=== PATIENT | female | born 1960 | race Caucasian/White ===

== ENCOUNTER 2016-10-27 10:29 | Emergency (ER) | payer MEDICARE, MEDICAID ==
[2016-10-27 11:06] VITALS: BP 109/65
[2016-10-27] MEDS ORDERED: Sodium Chloride 0.9% 1,000 ML IV ONE (11:38)
--- NOTE | 2016-10-27 11:45 | EDM.PDOC ---
ED HPI GENERAL MEDICAL PROBLEM - General Chief Complaint: Headache Stated Complaint: LOW BLOOD PRESSURE Time Seen by Provider: 10/27/16 11:30 Source of Information: Reports: Patient History Limitations: Reports: No Limitations - History of Present Illness Onset: Other (5 day history of mild pressure headache on left side of forehead. has tried imitrex 5 days ago and initially went away. then returned. has felt dizzy and light headed. just started on prazsosin 3 days ago. had topamax d/c at that time.) Location: Reports: Head Quality: Reports: Pressure Severity: Moderate Improves with: Reports: Other (imitrex 5 days ago initially made headache go away.) Worsens with: Reports: Movement Context: Reports: Other (prior history of migraines and gets migraines 3-4 times a month, same distribution on head (left side) ) Associated Symptoms: Reports: Other (dizzy and light headed) Headache Pain Score (Numeric/FACES): 5 - Related Data Allergies Allergy/AdvReac Type Severity Reaction Status Date / Time No Known Allergies Allergy Verified 07/05/13 15:25 Home Meds: Home Meds ALPRAZolam [Xanax] 2 mg PO DAILY 07/05/13 [History] SUMAtriptan Succinate [Imitrex] 100 mg PO ASDIRECTED PRN 07/05/13 [History] Prazosin HCl [Prazosin] 1 mg PO DAILY 10/27/16 [History] Venlafaxine HCl [Venlafaxine ER] 150 mg PO DAILY 10/27/16 [History] Venlafaxine [Effexor XR 24 Hr] 75 mg PO DAILY 10/27/16 [History] rOPINIRole [Requip] 0.5 mg PO TID 10/27/16 [History] Past Medical History Gastrointestinal History: Reports: 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 Social & Family History - Family History Family Medical History: Noncontributory - Tobacco Use Smoking Status *Q: Never Smoker Second Hand Smoke Exposure: No - Caffeine Use Caffeine Use: Reports: None - Alcohol Use Days Per Week of Alcohol Use: 0 - Recreational Drug Use Recreational Drug Use: Yes Recreational Drug Type: Reports: Marijuana/Hashish Recreational Drug Use Frequency: Weekly ED ROS GENERAL - Review of Systems Review Of Systems: See Below HEENT: Reports: No Symptoms Respiratory: Reports: No Symptoms Cardiovascular: Reports: No Symptoms Endocrine: Reports: No Symptoms GI/Abdominal: Reports: No Symptoms : Reports: No Symptoms Musculoskeletal: Reports: No Symptoms Skin: Reports: Other (has area on lower abd where sustained injury months ago, healing but occas serosang fluid. no change in fluid consistancy or amt, no increased redness/swelling or pain) Neurological: Reports: Other (dizzy last 3 days. headache for 5 days.) Psychiatric: Reports: No Symptoms ED EXAM, DIZZINESS - Physical Exam Exam: See Below Exam Limited By: No Limitations General Appearance: Alert Ears: Normal External Exam, Normal Canal, Hearing Grossly Normal, Normal TMs Nose: Normal Inspection, Normal Mucosa, No Blood Throat/Mouth: Normal Inspection, Normal Lips, Normal Teeth, Normal Gums, Normal Oropharynx, Normal Voice, No Airway Compromise Head Exam: Atraumatic, Normocephalic Neck: Normal Inspection, Supple, Non-Tender, Full Range of Motion Respiratory/Chest: No Respiratory Distress, Lungs Clear, Normal Breath Sounds Cardiovascular: Normal Peripheral Pulses, Regular Rate, Rhythm GI/Abdominal: Normal Bowel Sounds, Soft, Non-Tender Neurological: Alert, CN II-XII Intact, Oriented x 3 Back Exam: Normal Inspection, Full Range of Motion Extremities: Normal Inspection, Normal Range of Motion, Non-Tender, No Pedal Edema, Normal Capillary Refill Psychiatric: Other (poor eye contact) Skin Exam: Warm, Dry, Intact, Other (right mid abd area prior injury healing well with pink granulating scar. scant scab with no erythema/rubra/drainage. nontender) EKG INTERPRETATION EKG Date: 10/27/16 Rhythm: NSR (nsr rate 62) Course - Vital Signs Last Recorded V/S: Last Vital Signs Temp 36.1 C 10/27/16 11:00 Pulse 71 10/27/16 11:00 Resp 14 10/27/16 11:00 BP 109/65 10/27/16 11:00 Pulse Ox 98 10/27/16 11:00 - Orders/Labs/Meds Orders: Active Orders 24 hr Category Date Time Status EKG 12 Lead [EKG Documentation Completion] [RC] URGENT Care 10/27/16 12:00 Active Labs: Laboratory Tests 10/27/16 10/27/16 10/27/16 Range/Units 11:44 11:50 11:50 WBC 4.1 L (5.0-10.0) 10^3/uL RBC 3.87 L (4.2-5.4) 10^6/uL Hgb 11.1 L (12.0-16.0) g/dL Hct 34.0 L (37.0-47.0) % MCV 87.9 (80-100) fL MCH 28.7 (27.0-34.0) pg MCHC 32.6 L (33.0-35.0) g/dL Plt Count 260 (150-450) 10^3/uL Neut % (Auto) 46.6 (42.2-75.2) % Lymph % (Auto) 33.0 (20.5-50.1) % [place] % (Auto) 13.3 H (2-8) % Eos % (Auto) 6.6 H (1.0-3.0) % Baso % (Auto) 0.5 (0.0-1.0) % Sodium 137 (135-145) mmol/L Potassium 4.1 (3.6-5.0) mmol/L Chloride 103 (101-111) mmol/L Carbon Dioxide 26.0 (21.0-31.0) mmol/L Anion Gap 12.1 BUN 13 (7-18) mg/dL Creatinine 0.8 (0.6-1.3) mg/dL Est Cr Clr Drug Dosing 58.55 mL/min Estimated GFR (MDRD) > 60 BUN/Creatinine Ratio 16.25 Glucose 90 (74-105) mg/dL Calcium 9.2 (8.4-10.2) mg/dl Total Bilirubin 0.4 (0.2-1.0) mg/dL AST 52 H (10-42) IU/L ALT 40 (10-60) IU/L Alkaline Phosphatase 59 (42-121) IU/L Troponin I < 0.02 (0.00-0.02) ng/ml B-Natriuretic Peptide 12 (0-100) pg/ml Total Protein 7.3 (6.7-8.2) g/dl Albumin 4.0 (3.2-5.5) g/dl Globulin 3.3 Albumin/Globulin Ratio 1.21 Urine Color Light yellow (YELLOW) Urine Appearance Clear (CLEAR) Urine pH 6.5 (5.0-9.0) Ur Specific [place] 1.010 (1.005-1.030) Urine Protein Negative (NEGATIVE) Urine Glucose (UA) Negative (NEGATIVE) Urine Ketones Negative (NEGATIVE) Urine Occult Blood Negative (NEGATIVE) Urine Nitrite Negative (NEGATIVE) Urine Bilirubin Negative (NEGATIVE) Urine Urobilinogen 0.2 (0.2-1.0) mg/dL Ur Leukocyte Esterase Negative (NEGATIVE) Urine RBC Not seen /HPF Urine WBC Not seen (0-5/HPF) /HPF Ur Epithelial Cells Rare /HPF Meds: Medications Discontinued Medications Generic Name Dose Route Start Last Admin Trade Name Freq PRN Reason Stop Dose Admin Sodium Chloride 1,000 mls @ 999 mls/hr 10/27/16 11:38 10/27/16 12:11 Normal Saline IV 10/27/16 12:38 999 mls/hr .BOLUS ONE Administration Ketorolac Tromethamine 15 mg 10/27/16 12:48 10/27/16 12:58 Toradol IVPUSH 10/27/16 12:49 15 mg ONETIME ONE Administration Departure - Departure Time of Disposition: 13:09 Disposition: Home, Self-Care 01 Condition: good Clinical Impression: Medication adverse effect, Dizziness - Discharge Information Forms: ED Department Discharge Additional Instructions: As we discussed, most likely your symptoms are related to the Prazosin you were started on for nightmares. The options are to continue the medication to see if you can tolerated it over time. Or, if you feel the side effects are too much , stop the medication. You report your provider took you off Tomapax. As they seemed to have a very serious indication to do this, will not restart this in the ER. Advise you contact your provider and let them know you cannot tolerate the Prazosin, and request alternative choices. You will be dizzy and light headed as the Prazosin leaves your system. Use care with laying for a long period of time or sitting for a long period of time. Get up slowly and use caution with activities. No driving or working around items that could cause injury. Rest as much as possible, drink plenty of fluids. If you feel lightheaded or feel you may pass out, sit in a chair or lay in a bed quickly. If you need to, sit or lay on the floor until your symptoms improve. Contact your provider if your headache persists. - My Orders Last 24 Hours: My Active Orders 10/27/16 12:00 EKG 12 Lead [EKG Documentation Completion] [RC] URGENT - Assessment/Plan Last 24 Hours: My Active Orders 10/27/16 12:00 EKG 12 Lead [EKG Documentation Completion] [RC] URGENT
[2016-10-27 12:15] LABS: CHLORIDE,CL 103 mmol/L (101-111); SODIUM,NA 137 mmol/L (135-145)
--- NOTE | 2016-10-27 12:30 | CT ---
Clinical history: 56-year-old female with headache and dizziness (5 days). No known trauma. Scan technique: Volume acquisition of data emergency unenhanced CT scan of the head and brain obtain ed with patient lying supine on the Siemens multi slice CT scanner [place], [place]. All data archived in the PACS system for storage, reformatting and study (old/brain windows). Interpretation: Negative exam. Uniformly thick bony calvarium and no sign of paranasal or mastoid sinus inflammation. No skull fracture, underlying brain contusion or epidural/subdural hematoma. No supratentorial or posterior fossa mass lesion. No hydrocephalus. No ischemic infarcts or signs of acute intracerebral/intraventricular/subarachnoid bleed. Cerebellum and brainstem unremarkable. Physiologic midline pineal and symmetric choroid plexus calci fications.
[2016-10-27] MEDS ORDERED: Ketorolac 30 MG/ML SDV IVPUSH ONE (12:48)
--- NOTE | 2016-10-29 14:19 | EKG ---
10/27/2016 - SERENA JIMÉNEZ - TIME: 11:53. EKG per my reading, shows sinus rhythm. [facility] /[id number]
== END 2016-10-27 13:35 | disposition home or self-care (01) ==
LOC: DL.ED 10:29
DX: R42 Dizziness and giddiness (principal); T44.6X5A Adverse effect of alpha-adrenoreceptor antagonists, initial encounter; F32.9 Major depressive disorder, single episode, unspecified; G43.909 Migraine, unspecified, not intractable, without status migrainosus; Z79.899 Other long term (current) drug therapy; Z98.890 Other specified postprocedural states
CPT/HCPCS: 36415; 70450; 80053; 81001; 83880; 84484; 85025; 93005; 93010; 96361; 96374; 99284; 99285; J1885; J7030

== ENCOUNTER 2017-01-24 16:42 | Emergency (ER) | payer MEDICARE, MEDICAID ==
[2017-01-24 16:58] VITALS: BP 120/76
[2017-01-24] MEDS ORDERED: Rabies Immune Globulin PF 150 Units/ML 10 ML SDV IM ONE (17:19)
[2017-01-24] MEDS ORDERED: Rabies Vaccine, Human Diploid Cell PF 2.5 Unit SDV IM ONE (17:22)
[2017-01-24] MEDS ORDERED: Acetaminophen/HYDROcodone 325-10 MG Tab PO ONE (17:23)
--- NOTE | 2017-01-24 17:42 | EDM.PDOC ---
ED HPI GENERAL MEDICAL PROBLEM - General Chief Complaint: Bite:Animal, Insect Stated Complaint: [id number] BIT BY CAT ON SUNDAY Time Seen by Provider: 01/24/17 17:00 Source of Information: Reports: Patient History Limitations: Reports: No Limitations - History of Present Illness INITIAL COMMENTS - FREE TEXT/NARRATIVE: This 56 yo female patient reports to the ED with a cat bite. The patient reports she was bitten by her cat on Sunday (01/22/17). The patient has been experiencing increased pain in her left arm since that time. The patient reports the cat is not vaccinated but is healthy. The cat is an indoor and outdoor cat. Onset Date: 01/22/17 Duration: Constant, Getting Worse Location: Reports: Upper Extremity, Left Quality: Reports: Ache, Dull Severity: Moderate Improves with: Reports: None Worsens with: Reports: None Associated Symptoms: Reports: No Other Symptoms Bilateral Arm Pain Score (Numeric/FACES): 8 - Related Data Allergies Allergy/AdvReac Type Severity Reaction Status Date / Time latex Allergy Other Verified 01/24/17 16:46 Home Meds: Home Meds SUMAtriptan Succinate [Imitrex] 100 mg PO ASDIRECTED PRN 07/05/13 [History] Prazosin HCl [Prazosin] 1 mg PO DAILY 10/27/16 [History] Venlafaxine HCl [Venlafaxine ER] 150 mg PO DAILY 10/27/16 [History] Venlafaxine [Effexor XR 24 Hr] 75 mg PO DAILY 10/27/16 [History] rOPINIRole [Requip] 0.5 mg PO TID 10/27/16 [History] Past Medical History 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 Social & Family History - Family History Family Medical History: Noncontributory - Tobacco Use Smoking Status *Q: Never Smoker Second Hand Smoke Exposure: No - Caffeine Use Caffeine Use: Reports: Coffee, Soda - Alcohol Use Days Per Week of Alcohol Use: 0 - Recreational Drug Use Recreational Drug Use: Yes Drug Use in Last 12 Months: Yes Recreational Drug Type: Reports: Marijuana/Hashish Recreational Drug Use Frequency: Weekly ED ROS GENERAL - Review of Systems Review Of Systems: ROS reveals no pertinent complaints other than HPI. ED EXAM, ANIMAL BITE - Physical Exam Exam: Not Obtained Exam Limited By: No Limitations General Appearance: Alert, WD/WN, Moderate Distress Eye Exam: Bilateral Eye: EOMI, Normal Inspection, PERRL Ears: Normal External Exam, Normal Canal, Hearing Grossly Normal, Normal TMs Nose: Normal Inspection, Normal Mucosa, No Blood Throat/Mouth: Normal Inspection, Normal Lips, Normal Teeth, Normal Gums, Normal Oropharynx, Normal Voice, No Airway Compromise Head: Atraumatic, Normocephalic Neck: Normal Inspection, Supple, Non-Tender, Full Range of Motion Respiratory/Chest: No Respiratory Distress, Lungs Clear, Normal Breath Sounds, No Accessory Muscle Use, Chest Non-Tender Cardiovascular: Normal Peripheral Pulses, Regular Rate, Rhythm, No Edema, No Gallop, No JVD, No Murmur, No Rub GI/Abdominal: Normal Bowel Sounds, Soft, Non-Tender, No Organomegaly, No Distention, No Abnormal Bruit, No Mass (Female) Exam: Deferred Rectal (Female) Exam: Deferred Back Exam: Normal Inspection, Full Range of Motion, NT Extremities: Arm Pain (left forearm ) Neurological: Alert, Oriented, CN II-XII Intact, Normal Cognition, Normal Gait, Normal Reflexes, No Motor/Sensory Deficits Psychiatric: Normal Affect, Normal Mood Skin Exam: Other (The patient has multiple puncture wounds and scratch marion on her left and right forearm. The left forearm has erythema extending to the mid forearm with no evidence of drainage or abscess) Lymphatic: No Adenopathy Course - Vital Signs Last Recorded V/S: Last Vital Signs Temp 36.1 C 01/24/17 16:56 Pulse 95 01/24/17 16:56 Resp 20 01/24/17 16:56 BP 120/76 01/24/17 16:56 Pulse Ox 96 01/24/17 16:56 - Orders/Labs/Meds Orders: Active Orders 24 hr Category Date Time Status Vaccines to be Administered [RC] PER UNIT ROUTINE Care 01/24/17 17:23 Ordered Meds: Medications Discontinued Medications Generic Name Dose Route Start Last Admin Trade Name Freq PRN Reason Stop Dose Admin Hydrocodone Bitart/Acetaminophen 1 tab 01/24/17 17:23 [place] 325-10 Mg PO 01/24/17 17:24 ONETIME ONE Rabies Immune Globulin 1,100 unit 01/24/17 17:19 Hyperrab S/D IM 01/24/17 17:20 ONETIME ONE Rabies Vaccine Human Diploid Cell 2.5 unit 01/24/17 17:22 Imovax Rabies IM 01/24/17 17:23 .ONCE ONE Departure - Departure Time of Disposition: 17:52 Disposition: Home, Self-Care 01 Condition: Fair Clinical Impression: Cat bite involving extremity Cellulitis Qualifiers: Site of cellulitis: extremity Site of cellulitis of extremity: upper extremity Laterality: left Qualified Code(s): L03.114 - Cellulitis of left upper limb - Discharge Information Instructions: Animal Bite, [id number], Cellulitis, Adult, [id number] Forms: ED Department Discharge Care Plan Goals: The patient was advised of the examination results during the visit. The patient was advised of the recommendations for Immunoglobin and vaccination schedule. The patient was given an oral dose of [place] (10/325) for pain and the first round of the vaccination. The patient is scheduled to have vaccinations on day 0 (today), day 3, day 7, day 14 and day 28. The patient was discharged with a script for Augmentin (500/125) to take 1 by mouth 3 times per day for 7 days. If the patient has any additional symptoms or further concerns, the patient should follow-up with her primary care facility or return to the emergency department. - My Orders Last 24 Hours: My Active Orders 01/24/17 17:23 Vaccines to be Administered [RC] PER UNIT ROUTINE - Assessment/Plan Last 24 Hours: My Active Orders 01/24/17 17:23 Vaccines to be Administered [RC] PER UNIT ROUTINE
== END 2017-01-24 17:58 | disposition home or self-care (01) ==
LOC: DL.ED 16:42
DX: S51.852A Open bite of left forearm, initial encounter (principal); S51.851A Open bite of right forearm, initial encounter; L03.114 Cellulitis of left upper limb; G43.909 Migraine, unspecified, not intractable, without status migrainosus; F41.9 Anxiety disorder, unspecified; F32.9 Major depressive disorder, single episode, unspecified; Z91.040 Latex allergy status; Z79.899 Other long term (current) drug therapy; Z96.649 Presence of unspecified artificial hip joint; W55.01XA Bitten by cat, initial encounter
CPT/HCPCS: 90471; 90675; 99283; A9270

== ENCOUNTER 2019-04-12 11:03 | Observation (INO) | payer MEDICARE, MEDICAID ==
[2019-04-12] MEDS ORDERED: fentaNYL 100 MCG/2 ML SDV IVPUSH ONE (11:04)
[2019-04-12] MEDS ORDERED: Ondansetron 4 MG/2 ML SDV IV ONE (11:05)
[2019-04-12] MEDS ORDERED: Midazolam 1 MG/ML 2 ML SDV IVPUSH ONE (11:10)
[2019-04-12] MEDS ORDERED: Sodium Chloride 0.9% 1,000 ML IV ONE ×2 (11:32→12:18)
[2019-04-12] MEDS ORDERED: Piperacillin/Tazobactam 3.375 GM in Sodium Chloride 0.9% 100 ML IV ONE (12:01)
[2019-04-12] MEDS ORDERED: diphenhydrAMINE 50 MG/ML SDV IVPUSH ONE (12:01)
[2019-04-12] MEDS ORDERED: Sodium Chloride 0.9% 10 ML Syringe FLUSH PRN (12:01)
[2019-04-12 12:11] LABS: ANION GAP 11.2; CHLORIDE,CL 98 mmol/L (101-111); SODIUM,NA 131 mmol/L (135-145)
--- NOTE | 2019-04-12 13:21 | EDM.PDOC ---
Scribed by Carleen Connors 04/12/19 1126 for Rosaura Rivera MD ED HPI GENERAL MEDICAL PROBLEM - General Chief Complaint: Lower Extremity Injury/Pain Stated Complaint: HIP ABULANCE Time Seen by Provider: 04/12/19 11:06 Source of Information: Reports: Patient, EMS, EMS Notes Reviewed, RN, RN Notes Reviewed History Limitations: Reports: No Limitations - History of Present Illness INITIAL COMMENTS - FREE TEXT/NARRATIVE: Patient presents to the ER by [facility]. She has right hip pain. This started hurting this morning about 0400HRS at which time she laid on the floor and could not get up. She does not recall injuring the area and denies falling. Pt admits that she has fallen in the past 1 to 2 week though. She admits to daily marijuana use for pain. Last week she states her son brought her a new bag of marijuana and since using it she cannot sleep and has been agitated. Pt states she stays in a bedroom in their trailer house and rarely comes out. She states she has only gone outside of the home about 4 times a year. Pt states she does not feel safe in her home because people that she cannot see bang on the side of her house at all hours. Onset: Unknown/Unsure Duration: Constant Location: Reports: Lower Extremity, Right (Hip) Quality: Reports: Ache Severity: Severe Improves with: Reports: None Worsens with: Reports: Movement Associated Symptoms: Reports: No Other Symptoms Right Hip Pain Score (Numeric/FACES): 10 - Related Data Allergies Allergy/AdvReac Type Severity Reaction Status Date / Time latex Allergy Other Verified 04/12/19 11:06 Home Meds: Home Meds SUMAtriptan Succinate [Imitrex] 100 mg PO ASDIRECTED PRN 07/05/13 [History] Venlafaxine HCl [Venlafaxine ER] 150 mg PO DAILY 10/27/16 [History] rOPINIRole [Requip] 0.5 mg PO TID 10/27/16 [History] Diclofenac Sodium [Voltaren] 50 mg PO TID 12/31/17 [History] Escitalopram [Lexapro] 20 mg PO DAILY 12/31/17 [History] Propranolol [Inderal] 20 mg PO BID 12/31/17 [History] Past Medical History HEENT History: Reports: Impaired Vision Cardiovascular History: Reports: Hypertension Gastrointestinal History: Reports: Hepatitis [employer] History: Reports: Musculoskeletal History: Reports: Osteoarthritis Neurological History: Reports: Headaches, Chronic, Migraines Psychiatric History: Reports: Addiction, Anxiety, Depression - Infectious Disease History Infectious Disease History: Reports: Chicken Pox, Hepatitis C, Measles, Mumps - Past Surgical History Female Surgical History: Reports: Section Musculoskeletal Surgical History: Reports: Hip Replacement, 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) Other Musculoskeletal Surgeries/Procedures:: hip replacement x 4. Social & Family History - Family History Family Medical History: Noncontributory - Caffeine Use Caffeine Use: Reports: Soda - Alcohol Use Alcohol Use History: No - Recreational Drug Use Recreational Drug Use: Yes Drug Use in Last 12 Months: Yes Recreational Drug Type: Reports: Marijuana/Hashish Recreational Drug Use Frequency: Daily - Living Situation & Occupation Living situation: Reports: with Family Occupation: Disabled Review of Systems - Review of Systems Review Of Systems: ROS reveals no pertinent complaints other than HPI. ED EXAM, GENERAL - Physical Exam Exam: See Below Exam Limited By: No Limitations General Appearance: Alert, Anxious, Severe Distress Eye Exam: Bilateral Eye: EOMI, Nystagmus (Lateral gaze), PERRL Ears: Normal External Exam Nose: No Blood, Other (Crusting around nostrils suspicious for MRSA) Throat/Mouth: Normal Lips, Normal Voice, No Airway Compromise Head: Atraumatic, Normocephalic Neck: Normal Inspection, Full Range of Motion Respiratory/Chest: No Respiratory Distress, Lungs Clear, Normal Breath Sounds, No Accessory Muscle Use, Chest Non-Tender Cardiovascular: Normal Peripheral Pulses, Regular Rate, Rhythm, Tachycardia GI/Abdominal: Normal Bowel Sounds, Soft, Non-Tender, No Distention. No: Guarding, Rigid, Rebound Back Exam: Normal Inspection Extremities: Normal Capillary Refill, Limited Range of Motion (Rt hip due to pain), Other (Right buttock and lateral proximal thigh with large resolving hematoma/bruising. Old surgical scars at Rt hip consistent with Hx of multiple hip surgeries.). No: Increased Warmth, Mottled, Redness Neurological: Alert, Oriented, Confused Psychiatric: Anxious (Very agitated), Tearful, Other (psychotic with apparent auditory hallucinations) Skin Exam: Warm, Dry, Intact Course - Vital Signs Last Recorded V/S: Last Vital Signs Temp 98.5 F 04/12/19 11:10 Pulse 105 H 04/12/19 11:10 Resp 26 H 04/12/19 11:10 BP 148/114 H 04/12/19 11:10 Pulse Ox 94 L 04/12/19 11:10 - Orders/Labs/Meds Orders: Active Orders 24 hr Category Date Time Status Peripheral IV Care [RC] . DIRECTED Care 04/12/19 12:01 Active Chest 1V Frontal [CR] Stat Exams 04/12/19 12:08 Taken CULTURE BLOOD [] Stat Lab 04/12/19 12:24 Received CULTURE BLOOD [] Stat Lab 04/12/19 12:27 Received CULTURE STREP A CONFIRMATION [] Stat Lab 04/12/19 12:47 Results INFLUENZA A+B AG SCREEN [] Stat Lab 04/12/19 12:47 Received STREP SCRN A RAPID W CULT CONF [] Stat Lab 04/12/19 12:47 Results Sodium Chloride 0.9% [Normal Saline] 1,000 ml Med 04/12/19 12:18 Active IV .BOLUS Sodium Chloride 0.9% [Saline Flush] Med 04/12/19 12:01 Active 10 ml FLUSH ASDIRECTED PRN Vancomycin 1 gm Med 04/12/19 12:00 Active Sodium Chloride 0.9% [Normal Saline] 250 ml IV ONETIME Blood Culture x2 Reflex Set [OM.PC] Stat Oth 04/12/19 11:57 Ordered Peripheral IV Insertion Adult [OM.PC] Stat Oth 04/12/19 12:01 Ordered Medication Orders Vancomycin HCl 1 gm/ Sodium (Chloride) 250 mls @ 167 mls/hr IV ONETIME ONE Stop: 04/12/19 13:29 Sodium Chloride (Normal Saline) 1,000 mls @ 999 mls/hr IV .BOLUS ONE Stop: 04/12/19 13:18 Last Admin: 04/12/19 12:20 Dose: 999 mls/hr Sodium Chloride (Saline Flush) 10 ml FLUSH ASDIRECTED PRN PRN Reason: Keep Vein Open Last Admin: 04/12/19 13:02 Dose: 10 ml Labs: Laboratory Tests 04/12/19 04/12/19 04/12/19 Range/Units 11:38 11:38 11:38 WBC 20.0 H (5.0-10.0) 10^3/uL RBC 3.82 L (4.2-5.4) 10^6/uL Hgb 10.9 L (12.0-16.0) g/dL Hct 33.0 L (37.0-47.0) % MCV 86.4 (80-100) fL MCH 28.5 (27.0-34.0) pg MCHC 33.0 (33.0-35.0) g/dL Plt Count 352 (150-450) 10^3/uL Neut % (Auto) 92.4 H (42.2-75.2) % Lymph % (Auto) 1.8 L (20.5-50.1) % Winn % (Auto) 5.8 (2-8) % Eos % (Auto) 0.0 L (1.0-3.0) % Baso % (Auto) 0.0 (0.0-1.0) % Sodium 131 L (135-145) mmol/L Potassium 3.2 L (3.6-5.0) mmol/L Chloride 98 L (101-111) mmol/L Carbon Dioxide 25.0 (21.0-31.0) mmol/L Anion Gap 11.2 BUN 7 (7-18) mg/dL Creatinine 0.8 (0.6-1.3) mg/dL Est Cr Clr Drug Dosing 61.86 mL/min Estimated GFR (MDRD) > 60 BUN/Creatinine Ratio 8.75 Glucose 126 H (74-105) mg/dL Lactic Acid 1.1 (0.5-2.2) mmol/L Calcium 8.2 L (8.4-10.2) mg/dl Total Bilirubin 1.1 H (0.2-1.0) mg/dL AST 45 H (10-42) IU/L ALT 43 (10-60) IU/L Alkaline Phosphatase 70 (42-121) IU/L Creatine Kinase 103 (26-174) IU/L Total Protein 7.0 (6.7-8.2) g/dl Albumin 3.5 (3.2-5.5) g/dl Globulin 3.5 Albumin/Globulin Ratio 1.00 Urine Color (YELLOW) Urine Appearance (CLEAR) Urine pH (5.0-9.0) Ur Specific [place] (1.005-1.030) Urine Protein (NEGATIVE) Urine Glucose (UA) (NEGATIVE) Urine Ketones (NEGATIVE) Urine Occult Blood (NEGATIVE) Urine Nitrite (NEGATIVE) Urine Bilirubin (NEGATIVE) Urine Urobilinogen (0.2-1.0) mg/dL Ur Leukocyte Esterase (NEGATIVE) Urine RBC /HPF Urine WBC (0-5/HPF) /HPF Ur Epithelial Cells (NOT SEEN) /HPF Urine Bacteria (0-FEW/HPF) /HPF Urine Mucus (NOT SEEN) /LPF Urine Opiates Screen (NEGATIVE) Ur Oxycodone Screen (NEGATIVE) Urine Methadone Screen (NEGATIVE) Ur Barbiturates Screen (NEGATIVE) U Tricyclic Antidepress (NEGATIVE) Ur Phencyclidine Scrn (NEGATIVE) Ur Amphetamine Screen (NEGATIVE) U Methamphetamines Scrn (NEGATIVE) Urine MDMA Screen (NEGATIVE) U Benzodiazepines Scrn (NEGATIVE) Urine Cocaine Screen (NEGATIVE) U Marijuana (THC) Screen (NEGATIVE) Ethyl Alcohol < 5 mg/dL 04/12/19 04/12/19 Range/Units 12:07 12:07 WBC (5.0-10.0) 10^3/uL RBC (4.2-5.4) 10^6/uL Hgb (12.0-16.0) g/dL Hct (37.0-47.0) % MCV (80-100) fL MCH (27.0-34.0) pg MCHC (33.0-35.0) g/dL Plt Count (150-450) 10^3/uL Neut % (Auto) (42.2-75.2) % Lymph % (Auto) (20.5-50.1) % Winn % (Auto) (2-8) % Eos % (Auto) (1.0-3.0) % Baso % (Auto) (0.0-1.0) % Sodium (135-145) mmol/L Potassium (3.6-5.0) mmol/L Chloride (101-111) mmol/L Carbon Dioxide (21.0-31.0) mmol/L Anion Gap BUN (7-18) mg/dL Creatinine (0.6-1.3) mg/dL Est Cr Clr Drug Dosing mL/min Estimated GFR (MDRD) BUN/Creatinine Ratio Glucose (74-105) mg/dL Lactic Acid (0.5-2.2) mmol/L Calcium (8.4-10.2) mg/dl Total Bilirubin (0.2-1.0) mg/dL AST (10-42) IU/L ALT (10-60) IU/L Alkaline Phosphatase (42-121) IU/L Creatine Kinase (26-174) IU/L Total Protein (6.7-8.2) g/dl Albumin (3.2-5.5) g/dl Globulin Albumin/Globulin Ratio Urine Color Yellow (YELLOW) Urine Appearance Clear (CLEAR) Urine pH 7.5 (5.0-9.0) Ur Specific [place] 1.015 (1.005-1.030) Urine Protein Negative (NEGATIVE) Urine Glucose (UA) Negative (NEGATIVE) Urine Ketones Negative (NEGATIVE) Urine Occult Blood Trace-intact H (NEGATIVE) Urine Nitrite Negative (NEGATIVE) Urine Bilirubin Negative (NEGATIVE) Urine Urobilinogen 1.0 (0.2-1.0) mg/dL Ur Leukocyte Esterase Negative (NEGATIVE) Urine RBC 5-10 H /HPF Urine WBC 0-5 (0-5/HPF) /HPF Ur Epithelial Cells Few (NOT SEEN) /HPF Urine Bacteria Rare (0-FEW/HPF) /HPF Urine Mucus Few H (NOT SEEN) /LPF Urine Opiates Screen Negative (NEGATIVE) Ur Oxycodone Screen Negative (NEGATIVE) Urine Methadone Screen Negative (NEGATIVE) Ur Barbiturates Screen Negative (NEGATIVE) U Tricyclic Antidepress Negative (NEGATIVE) Ur Phencyclidine Scrn Negative (NEGATIVE) Ur Amphetamine Screen Negative (NEGATIVE) U Methamphetamines Scrn Positive H (NEGATIVE) Urine MDMA Screen Negative (NEGATIVE) U Benzodiazepines Scrn Positive H (NEGATIVE) Urine Cocaine Screen Negative (NEGATIVE) U Marijuana (THC) Screen Positive H (NEGATIVE) Ethyl Alcohol mg/dL Rapid strep: Negative. Influenza A: Negative. Influenza B: Negative. Meds: Medications Generic Name Dose Route Start Last Admin Trade Name Freq PRN Reason Stop Dose Admin Vancomycin HCl 1 gm/ Sodium 250 mls @ 167 mls/hr 04/12/19 12:00 Chloride IV 04/12/19 13:29 ONETIME ONE Sodium Chloride 1,000 mls @ 999 mls/hr 04/12/19 12:18 04/12/19 12:20 Normal Saline IV 04/12/19 13:18 999 mls/hr .BOLUS ONE Administration Sodium Chloride 10 ml 04/12/19 12:01 04/12/19 13:02 Saline Flush FLUSH 10 ml ASDIRECTED PRN Administration Keep Vein Open Discontinued Medications Generic Name Dose Route Start Last Admin Trade Name Rianna PRN Reason Stop Dose Admin Diphenhydramine HCl 25 mg 04/12/19 12:01 04/12/19 13:01 Benadryl IVPUSH 04/12/19 12:02 25 mg ONETIME ONE Administration Fentanyl 50 mcg 04/12/19 11:04 04/12/19 11:17 Sublimaze IVPUSH 04/12/19 11:05 50 mcg ONETIME ONE Administration Sodium Chloride 1,000 mls @ 999 mls/hr 04/12/19 11:32 04/12/19 13:04 Normal Saline IV 04/12/19 12:32 999 mls/hr .BOLUS ONE Administration Piperacillin Sod/Tazobactam 100 mls @ 200 mls/hr 04/12/19 12:01 04/12/19 13: 04 Sod 3.375 gm/ Sodium Chloride IV 04/12/19 12:30 200 mls/hr ONETIME ONE Administration Midazolam HCl 2 mg 04/12/19 11:10 04/12/19 13:04 Versed 1 Mg/Ml IVPUSH 04/12/19 11:11 2 mg ONETIME ONE Administration Ondansetron HCl 4 mg 04/12/19 11:05 04/12/19 11:17 Zofran IV 04/12/19 11:06 4 mg ONETIME ONE Administration - Radiology Interpretation Free Text/Narrative:: [facility] Final Radiology Report Call: [phone] assistance Online chat: [email or web address] Name: SERENA JIMÉNEZ Age: 59Years F Date: 04/12/2019 SSN: -- : 1960 Study: HIP MIN 1V W PELVIS RT Requesting Physician: ROSAURA RIVERA Images: 2 Addl Studies: Provided Clinical History: Contrast: Contrast Medium: Contrast Amount: Contrast Method: CONFIDENTIALITY STATEMENT This report is intended only for use by the referring physician, and only in accordance with law. If you received this in error, call [phone]. Page 1 of 1 PROCEDURE INFORMATION: Exam: XR Right Hip with Pelvis when Performed Exam date and time: 04/12/2019 11:06 AM Clinical history: 59 years old, female; Right hip; Prior surgery; Surgery date: 6+ months; Surgery type: Hip x 4; Patient HX: Severe RT hip pain no injury. TECHNIQUE: Imaging protocol: XR Right hip with pelvis when performed. Views: 2 or 3 views. COMPARISON: CR HIP RT 1 VIEW + PELVIS 10/13/2011 9:57 AM FINDINGS: Bones/joints: Status post right total hip arthroplasty with no evidence of migration, loosening, failure or fracture. 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 Large right acetabular component. Soft tissues: Unremarkable. IMPRESSION: 1. Status post right total hip arthroplasty with no evidence of migration, loosening, failure or fracture. 2. 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 Thank you for allowing us to participate in the care of your patient. Dictated and Authenticated by: Garry Corral MD 04/12/2019 11:54 AM Central Time ( & [place]) [facility] Final Radiology Report Call: [phone] assistance Online chat: [email or web address] Name: SERENA JIMÉNEZ Age: 59Years F Date: 04/12/2019 SSN: -- : 1960 Study: XR CHEST 1 VIEW FRONTAL Requesting Physician: ROSAURA RIVERA Images: 1 Addl Studies: Provided Clinical History: Contrast: Contrast Medium: Contrast Amount: Contrast Method: CONFIDENTIALITY STATEMENT This report is intended only for use by the referring physician, and only in accordance with law. If you received this in error, call [phone]. Page 1 of 1 PROCEDURE INFORMATION: Exam: XR Chest, 1 View Exam date and time: 04/12/2019 12:12 PM Clinical history: 59 years old, female; Other: Sepsis unknown origin TECHNIQUE: Imaging protocol: XR of the chest Views: 1 view. COMPARISON: No relevant prior studies available. FINDINGS: Lungs: Unremarkable. No consolidation. Pleural space: Unremarkable. No pleural effusion. No pneumothorax. Heart/Mediastinum: Unremarkable. No cardiomegaly. Bones/joints: Unremarkable. IMPRESSION: No acute findings. Thank you for allowing us to participate in the care of your patient. Dictated and Authenticated by: Garry Corral MD 04/12/2019 12:27 PM Central Time ([place] & [place]) Departure - Departure Time of Disposition: 13:05 (admit to Dr. Park) Disposition: Refer to Observation Condition: Fair, Undetermined Clinical Impression: Exposure to methamphetamine, Chronic right hip pain Sepsis Qualifiers: Sepsis type: sepsis due to unspecified organism Sepsis acute organ dysfunction status: without acute organ dysfunction Qualified Code(s): A41.9 - Sepsis, unspecified organism Altered mental status Qualifiers: Altered mental status type: unspecified Qualified Code(s): R41.82 - Altered mental status, unspecified Traumatic hematoma of buttock Qualifiers: Encounter type: initial encounter Qualified Code(s): S30.0XXA - Contusion of lower back and pelvis, initial encounter Traumatic hematoma of right thigh Qualifiers: Encounter type: initial encounter Qualified Code(s): S70.11XA - Contusion of right thigh, initial encounter - Discharge Information *PRESCRIPTION DRUG MONITORING PROGRAM REVIEWED*: No *COPY OF PRESCRIPTION DRUG MONITORING REPORT IN PATIENT SURENDRA: No Forms: ED Department Discharge - My Orders Last 24 Hours: My Active Orders 04/12/19 11:57 Blood Culture x2 Reflex Set [OM.PC] Stat 04/12/19 12:00 Vancomycin 1 gm Sodium Chloride 0.9% [Normal Saline] 250 ml IV ONETIME 04/12/19 12:01 Peripheral IV Care [RC] . DIRECTED Sodium Chloride 0.9% [Saline Flush] 10 ml FLUSH ASDIRECTED PRN Peripheral IV Insertion Adult [OM.PC] Stat 04/12/19 12:08 Chest 1V Frontal [CR] Stat 04/12/19 12:18 Sodium Chloride 0.9% [Normal Saline] 1,000 ml IV .BOLUS 04/12/19 12:24 CULTURE BLOOD [BC] Stat 04/12/19 12:27 CULTURE BLOOD [BC] Stat 04/12/19 12:47 CULTURE STREP A CONFIRMATION [RM] Stat INFLUENZA A+B AG SCREEN [] Stat STREP SCRN A RAPID W CULT CONF [] Stat - Assessment/Plan Last 24 Hours: My Active Orders 04/12/19 11:57 Blood Culture x2 Reflex Set [OM.PC] Stat 04/12/19 12:00 Vancomycin 1 gm Sodium Chloride 0.9% [Normal Saline] 250 ml IV ONETIME 04/12/19 12:01 Peripheral IV Care [RC] . DIRECTED Sodium Chloride 0.9% [Saline Flush] 10 ml FLUSH ASDIRECTED PRN Peripheral IV Insertion Adult [OM.PC] Stat 04/12/19 12:08 Chest 1V Frontal [CR] Stat 04/12/19 12:18 Sodium Chloride 0.9% [Normal Saline] 1,000 ml IV .BOLUS 04/12/19 12:24 CULTURE BLOOD [BC] Stat 04/12/19 12:27 CULTURE BLOOD [BC] Stat 04/12/19 12:47 CULTURE STREP A CONFIRMATION [RM] Stat INFLUENZA A+B AG SCREEN [RM] Stat STREP SCRN A RAPID W CULT CONF [RM] Stat I have read and agree with the documentation that has been completed regarding this visit. By signing this record, I attest that the documentation was completed in my physical presence and is an accurate record of the encounter.
[2019-04-12] MEDS ORDERED: Morphine 2 MG/ML Syringe IVPUSH ONE (13:56)
--- NOTE | 2019-04-12 14:17 | PCM.HP ---
H&P History of Present Illness - General Date of Service: 04/12/19 Admit Problem/Dx: Admission Diagnosis/Problem Admission Diagnosis/Problem Methamphetamine abuse Source of Information: Patient, Provider (From the ER) - History of Present Illness Initial Comments - Free Text/Narative: 59-year-old lady with a history of anxiety, migraine. She lives with son, rarely leaving her trailer home. She has had multiple surgeries on her right hip. She is using marijuana for pain control. Recently received a new bag and since then she has been unable to sleep. She has had diarrhea. She says she got out of bed around 4:00 in the morning and was unable to get up She is complaining of right sided hip pain. Worse with movements. Sharp. Radiating From the low back down to the right knee No associated redness. She was noted to have fever in the emergency room. Santana catheter was placed. Right Hip Pain Score (Numeric/FACES): 10 - Related Data Allergies/Adverse Reactions: Allergies Allergy/AdvReac Type Severity Reaction Status Date / Time latex Allergy Other Verified 04/12/19 11:06 Home Medications: Home Meds SUMAtriptan Succinate [Imitrex] 100 mg PO ASDIRECTED PRN 07/05/13 [History] rOPINIRole [Requip] 0.5 mg PO TID 10/27/16 [History] Diclofenac Sodium [Voltaren] 50 mg PO TID 12/31/17 [History] Escitalopram [Lexapro] 20 mg PO DAILY 12/31/17 [History] ALPRAZolam [Xanax] 0.5 mg PO Q6HR PRN 04/12/19 [History] Past Medical History HEENT History: Reports: Impaired Vision Cardiovascular History: Reports: Hypertension Respiratory History: Reports: None Gastrointestinal History: Reports: GERD, Hepatitis [employer] History: Reports: , 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) Other OB/BYN History: tubal Ligation Musculoskeletal History: Reports: Osteoarthritis Neurological History: Reports: Headaches, Chronic, Migraines Psychiatric History: Reports: Addiction, Anxiety, Depression Endocrine/Metabolic History: Reports: None Hematologic History: Reports: Anemia, Blood Transfusion(s) Immunologic History: Reports: None Oncologic (Cancer) History: Reports: None Dermatologic History: Reports: None - Infectious Disease History Infectious Disease History: Reports: Chicken Pox, Hepatitis C, Measles, Mumps - Past Surgical History GI Surgical History: Reports: Colonoscopy Female Surgical History: Reports: Section Musculoskeletal Surgical History: Reports: Hip Replacement, 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) Other Musculoskeletal Surgeries/Procedures:: hip replacement x 4. Social & Family History - Family History Family Medical History: Noncontributory - Tobacco Use Smoking Status *Q: Never Smoker Second Hand Smoke Exposure: No - Caffeine Use Caffeine Use: Reports: Coffee, Soda - Alcohol Use Date of Last Drink: 10/02/17 - Recreational Drug Use Recreational Drug Use: Yes Drug Use in Last 12 Months: Yes Recreational Drug Type: Reports: Marijuana/Hashish Recreational Drug Use Frequency: Daily - Living Situation & Occupation Living situation: Reports: with Family Occupation: Disabled H&P Review of Systems - Review of Systems: Review Of Systems: See Below General: Reports: Fever Pulmonary: Denies: Shortness of Breath Cardiovascular: Denies: Chest Pain Gastrointestinal: Reports: Diarrhea Genitourinary: Denies: Dysuria Psychiatric: Reports: Anxiety, Other (Difficulty sleeping) Neurological: Reports: Other (Frequent headaches with a history of migraines) Exam - Exam Exam: See Below - Vital Signs Vital Signs: Last Vital Signs Temp 36.9 C 04/12/19 11:10 Pulse 105 H 04/12/19 11:10 Resp 26 H 04/12/19 11:10 BP 148/114 H 04/12/19 11:10 Pulse Ox 94 L 04/12/19 11:10 Weight: 60.419 kg - Exam General: Alert, Oriented Neck: Supple Lungs: Clear to Auscultation, Normal Respiratory Effort Cardiovascular: Regular Rate, Regular Rhythm Extremities: No Pedal Edema, Other (Right hip with incision, no redness, no swelling, the patient can move the hip but complaining of pain when I'm moving it.) Skin: Warm, Dry Neuro Extensive - Mental Status: Alert, Oriented x3 Psychiatric: Anxious, Other (Restless, moderately agitated) - Patient Data Lab Results Last 24 hrs: Laboratory Results - last 24 hr 04/12/19 04/12/19 04/12/19 Range/Units 11:38 11:38 11:38 WBC 20.0 H (5.0-10.0) 10^3/uL RBC 3.82 L (4.2-5.4) 10^6/uL Hgb 10.9 L (12.0-16.0) g/dL Hct 33.0 L (37.0-47.0) % MCV 86.4 (80-100) fL MCH 28.5 (27.0-34.0) pg MCHC 33.0 (33.0-35.0) g/dL Plt Count 352 (150-450) 10^3/uL Neut % (Auto) 92.4 H (42.2-75.2) % Lymph % (Auto) 1.8 L (20.5-50.1) % [place] % (Auto) 5.8 (2-8) % Eos % (Auto) 0.0 L (1.0-3.0) % Baso % (Auto) 0.0 (0.0-1.0) % Sodium 131 L (135-145) mmol/L Potassium 3.2 L (3.6-5.0) mmol/L Chloride 98 L (101-111) mmol/L Carbon Dioxide 25.0 (21.0-31.0) mmol/L Anion Gap 11.2 BUN 7 (7-18) mg/dL Creatinine 0.8 (0.6-1.3) mg/dL Est Cr Clr Drug Dosing 61.86 mL/min Estimated GFR (MDRD) > 60 BUN/Creatinine Ratio 8.75 Glucose 126 H (74-105) mg/dL Lactic Acid 1.1 (0.5-2.2) mmol/L Calcium 8.2 L (8.4-10.2) mg/dl Total Bilirubin 1.1 H (0.2-1.0) mg/dL AST 45 H (10-42) IU/L ALT 43 (10-60) IU/L Alkaline Phosphatase 70 (42-121) IU/L Creatine Kinase 103 (26-174) IU/L Total Protein 7.0 (6.7-8.2) g/dl Albumin 3.5 (3.2-5.5) g/dl Globulin 3.5 Albumin/Globulin Ratio 1.00 Urine Color (YELLOW) Urine Appearance (CLEAR) Urine pH (5.0-9.0) Ur Specific [place] (1.005-1.030) Urine Protein (NEGATIVE) Urine Glucose (UA) (NEGATIVE) Urine Ketones (NEGATIVE) Urine Occult Blood (NEGATIVE) Urine Nitrite (NEGATIVE) Urine Bilirubin (NEGATIVE) Urine Urobilinogen (0.2-1.0) mg/dL Ur Leukocyte Esterase (NEGATIVE) Urine RBC /HPF Urine WBC (0-5/HPF) /HPF Ur Epithelial Cells (NOT SEEN) /HPF Urine Bacteria (0-FEW/HPF) /HPF Urine Mucus (NOT SEEN) /LPF Urine Opiates Screen (NEGATIVE) Ur Oxycodone Screen (NEGATIVE) Urine Methadone Screen (NEGATIVE) Ur Barbiturates Screen (NEGATIVE) U Tricyclic Antidepress (NEGATIVE) Ur Phencyclidine Scrn (NEGATIVE) Ur Amphetamine Screen (NEGATIVE) U Methamphetamines Scrn (NEGATIVE) Urine MDMA Screen (NEGATIVE) U Benzodiazepines Scrn (NEGATIVE) Urine Cocaine Screen (NEGATIVE) U Marijuana (THC) Screen (NEGATIVE) Ethyl Alcohol < 5 mg/dL 04/12/19 04/12/19 Range/Units 12:07 12:07 WBC (5.0-10.0) 10^3/uL RBC (4.2-5.4) 10^6/uL Hgb (12.0-16.0) g/dL Hct (37.0-47.0) % MCV (80-100) fL MCH (27.0-34.0) pg MCHC (33.0-35.0) g/dL Plt Count (150-450) 10^3/uL Neut % (Auto) (42.2-75.2) % Lymph % (Auto) (20.5-50.1) % [place] % (Auto) (2-8) % Eos % (Auto) (1.0-3.0) % Baso % (Auto) (0.0-1.0) % Sodium (135-145) mmol/L Potassium (3.6-5.0) mmol/L Chloride (101-111) mmol/L Carbon Dioxide (21.0-31.0) mmol/L Anion Gap BUN (7-18) mg/dL Creatinine (0.6-1.3) mg/dL Est Cr Clr Drug Dosing mL/min Estimated GFR (MDRD) BUN/Creatinine Ratio Glucose (74-105) mg/dL Lactic Acid (0.5-2.2) mmol/L Calcium (8.4-10.2) mg/dl Total Bilirubin (0.2-1.0) mg/dL AST (10-42) IU/L ALT (10-60) IU/L Alkaline Phosphatase (42-121) IU/L Creatine Kinase (26-174) IU/L Total Protein (6.7-8.2) g/dl Albumin (3.2-5.5) g/dl Globulin Albumin/Globulin Ratio Urine Color Yellow (YELLOW) Urine Appearance Clear (CLEAR) Urine pH 7.5 (5.0-9.0) Ur Specific [place] 1.015 (1.005-1.030) Urine Protein Negative (NEGATIVE) Urine Glucose (UA) Negative (NEGATIVE) Urine Ketones Negative (NEGATIVE) Urine Occult Blood Trace-intact H (NEGATIVE) Urine Nitrite Negative (NEGATIVE) Urine Bilirubin Negative (NEGATIVE) Urine Urobilinogen 1.0 (0.2-1.0) mg/dL Ur Leukocyte Esterase Negative (NEGATIVE) Urine RBC 5-10 H /HPF Urine WBC 0-5 (0-5/HPF) /HPF Ur Epithelial Cells Few (NOT SEEN) /HPF Urine Bacteria Rare (0-FEW/HPF) /HPF Urine Mucus Few H (NOT SEEN) /LPF Urine Opiates Screen Negative (NEGATIVE) Ur Oxycodone Screen Negative (NEGATIVE) Urine Methadone Screen Negative (NEGATIVE) Ur Barbiturates Screen Negative (NEGATIVE) U Tricyclic Antidepress Negative (NEGATIVE) Ur Phencyclidine Scrn Negative (NEGATIVE) Ur Amphetamine Screen Negative (NEGATIVE) U Methamphetamines Scrn Positive H (NEGATIVE) Urine MDMA Screen Negative (NEGATIVE) U Benzodiazepines Scrn Positive H (NEGATIVE) Urine Cocaine Screen Negative (NEGATIVE) U Marijuana (THC) Screen Positive H (NEGATIVE) Ethyl Alcohol mg/dL Result Diagrams: 04/12/19 11:38 04/12/19 11:38 Luciano Results Last 24 hrs: Microbiology 04/12/19 12:47 Influenza Type A Antigen Screen - Final Nasal, Unspecified NEGATIVE INFLUENZA A VIRUS AG REFERENCE RANGE: NEGATIVE Influenza Type B Antigen Screen - Final NEGATIVE INFLUENZA B VIRUS AG REFERENCE RANGE: NEGATIVE 04/12/19 12:47 Group A Streptococcus Rapid Screen - Final Throat NEGATIVE STREP A SCREEN REFERENCE RANGE: NEGATIVE Imaging Impressions Last 24 hrs: [facility] Final Radiology Report Call: [phone] assistance Online chat: [email or web address] Name: SERENA JIMÉNEZ Age: 59Years F Date: 04/12/2019 SSN: -- : [id number] Study: HIP MIN 1V W PELVIS RT Requesting Physician: ROSAURA OLVERA Images: 2 Addl Studies: Provided Clinical History: Contrast: Contrast Medium: Contrast Amount: Contrast Method: CONFIDENTIALITY STATEMENT This report is intended only for use by the referring physician, and only in accordance with law. If you received this in error, call [phone]. Page 1 of 1 PROCEDURE INFORMATION: Exam: XR Right Hip with Pelvis when Performed Exam date and time: 04/12/2019 11:06 AM Clinical history: 59 years old, female; Right hip; Prior surgery; Surgery date: 6+ months; Surgery type: Hip x 4; Patient HX: Severe RT hip pain no injury. TECHNIQUE: Imaging protocol: XR Right hip with pelvis when performed. Views: 2 or 3 views. COMPARISON: CR HIP RT 1 VIEW + PELVIS 10/13/2011 9:57 AM FINDINGS: Bones/joints: Status post right total hip arthroplasty with no evidence of migration, loosening, failure or fracture. 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 Large right acetabular component. Soft tissues: Unremarkable. IMPRESSION: 1. Status post right total hip arthroplasty with no evidence of migration, loosening, failure or fracture. 2. 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 Thank you for allowing us to participate in the care of your patient. Dictated and Authenticated by: Garry Corral MD 04/12/2019 11:54 AM Central Time ([place] & [place]) [facility] Final Radiology Report Call: [phone] assistance Online chat: [email or web address] Name: SERENA JIMÉNEZ Age: 59Years F Date: 04/12/2019 SSN: -- : 1960 Study: XR CHEST 1 VIEW FRONTAL Requesting Physician: ROSAURA OLVERA Images: 1 Addl Studies: Provided Clinical History: Contrast: Contrast Medium: Contrast Amount: Contrast Method: CONFIDENTIALITY STATEMENT This report is intended only for use by the referring physician, and only in accordance with law. If you received this in error, call [phone]. Page 1 of 1 PROCEDURE INFORMATION: Exam: XR Chest, 1 View Exam date and time: 04/12/2019 12:12 PM Clinical history: 59 years old, female; Other: Sepsis unknown origin TECHNIQUE: Imaging protocol: XR of the chest Views: 1 view. COMPARISON: No relevant prior studies available. FINDINGS: Lungs: Unremarkable. No consolidation. Pleural space: Unremarkable. No pleural effusion. No pneumothorax. Heart/Mediastinum: Unremarkable. No cardiomegaly. Bones/joints: Unremarkable. IMPRESSION: No acute findings. Thank you for allowing us to participate in the care of your patient. Dictated and Authenticated by: Garry Corral MD 04/12/2019 12:27 PM Central Time ([place] & [place]) - Problem List (1) Altered mental status SNOMED Code(s): 002928532 ICD Code: R41.82 - ALTERED MENTAL STATUS, UNSPECIFIED Status: Acute Current Visit: Yes Qualifiers: Altered mental status type: unspecified Qualified Code(s): R41.82 - Altered mental status, unspecified (2) Exposure to methamphetamine SNOMED Code(s): 903945861 ICD Code: Z77.29 - CONTACT WITH AND EXPOSURE TO OTHER HAZARDOUS SUBSTANCES Status: Acute Current Visit: Yes (3) Sepsis SNOMED Code(s): 98012332 ICD Code: A41.9 - SEPSIS, UNSPECIFIED ORGANISM Status: Acute Current Visit: Yes Qualifiers: Sepsis type: sepsis due to unspecified organism Sepsis acute organ dysfunction status: without acute organ dysfunction Qualified Code(s): A41.9 - Sepsis, unspecified organism Problem List Initiated/Reviewed/Updated: Yes Orders Last 24hrs: Active Orders 24 hr Category Date Time Status Admission Diagnosis [ADT] Routine ADT 04/12/19 13:16 Ordered Admission Status [Patient Status] [ADT] Routine ADT 04/12/19 13:16 Active Peripheral IV Care [RC] . DIRECTED Care 04/12/19 12:01 Active Chest 1V Frontal [CR] Stat Exams 04/12/19 12:08 Taken CULTURE BLOOD [BC] Stat Lab 04/12/19 12:24 Received CULTURE BLOOD [BC] Stat Lab 04/12/19 12:27 Received CULTURE STREP A CONFIRMATION [RM] Stat Lab 04/12/19 12:47 Results STREP SCRN A RAPID W CULT CONF [RM] Stat Lab 04/12/19 12:47 Results LORazepam [Ativan] Med 04/12/19 14:06 Ordered 1 mg IVPUSH Q4H PRN Piperacillin/Tazobactam [Zosyn] 3.375 gm Med 04/12/19 18:00 Ordered Sodium Chloride 0.9% [Normal Saline] 100 ml IV Q6H Sodium Chloride 0.9% [Saline Flush] Med 04/12/19 12:01 Active 10 ml FLUSH ASDIRECTED PRN Blood Culture x2 Reflex Set [OM.PC] Stat Ot 04/12/19 11:57 Ordered Peripheral IV Insertion Adult [OM.PC] Stat Ot 04/12/19 12:01 Ordered Medication Orders Piperacillin Sod/Tazobactam (Sod 3.375 gm/ Sodium Chloride) 100 mls @ 200 mls/ hr IV Q6H BRAYDON Lorazepam (Ativan) 1 mg IVPUSH Q4H PRN PRN Reason: Anxiety Sodium Chloride (Saline Flush) 10 ml FLUSH ASDIRECTED PRN PRN Reason: Keep Vein Open Last Admin: 04/12/19 13:02 Dose: 10 ml Assessment/Plan Comment:: 59-year-old lady presented with right hip pain. The patient has a history of prior surgeries. She is quite anxious and agitated and difficult to get a good examination and history. The physical exam of the hip other than pain appears quite benign. Healed surgical scars seen. X-ray of the hip did not identify dislocation, fracture. There is leukocytosis and has a history of infection. For now obtain blood cultures Consider MRI if continue to have concern for infection in the future. Diarrhea This might relate to the leukocytosis Check for C. difficile Possible Sepsis With leukocytosis, fever Will give IV fluids Follow Other sources of infection Ua shows negative nitrate, negative leukocyte esterase, send culture Chest x-ray showed no infection Empirically treat with Zosyn She also received a dose of vancomycin in the emergency room Repeat CBC, lactic acid in the morning Anxiety, agitation With history of PTSD, anxiety, migraines The patient tested positive for amphetamines This might be a contaminant in the Marijuana she used Use Ativan as needed for anxiety Morphine IV for pain Continue Lexapro for anxiety DVT prophylaxis with subcutaneous heparin
[2019-04-12] MEDS ORDERED: Zolpidem 5 MG Tab PO PRN (14:33)
[2019-04-12] MEDS ORDERED: Ibuprofen 400 MG Tab PO PRN (14:33)
[2019-04-12] MEDS ORDERED: Acetaminophen 325 MG Tab PO PRN (14:33)
[2019-04-12] MEDS ORDERED: Ondansetron 4 MG Tab.DIS PO PRN (14:33)
[2019-04-12] MEDS ORDERED: Ondansetron 4 MG/2 ML SDV IVPUSH PRN (14:33)
[2019-04-12] MEDS ORDERED: NS + KCl 20mEq/L 1,000 ML IV SCH (14:45)
[2019-04-12] MEDS: LORazepam 2 MG/ML Syringe IVPUSH PRN ×2 (14:51→19:53)
[2019-04-12] MEDS ORDERED: LORazepam 2 MG/ML Syringe IVPUSH ONE (15:36)
[2019-04-12] MEDS: Morphine 2 MG/ML Syringe IVPUSH PRN ×2 (15:42→19:53)
[2019-04-12] MEDS: Potassium Chloride 10 MEQ Tab.ER PO SCH ×2 (16:09→20:40)
--- NOTE | 2019-04-12 16:12 | PCM.DCSUM1 ---
Discharge Summary - Hospital Course Free Text/Narrative:: 59-year-old lady presented with right hip pain. The patient has a history of prior surgeries. She is quite anxious and agitated and difficult to get a good examination and history. The physical exam of the hip other than pain appears quite benign. Healed surgical scars seen. X-ray of the hip did not identify dislocation, fracture. There is leukocytosis and has a history of infection. For now obtain blood cultures Consider MRI if continue to have concern for infection in the future. Diarrhea This might relate to the leukocytosis Check for C. difficile Possible Sepsis With leukocytosis, fever Will give IV fluids Follow Other sources of infection Ua shows negative nitrate, negative leukocyte esterase, send culture Chest x-ray showed no infection Empirically treat with Zosyn She also received a dose of vancomycin in the emergency room Repeat CBC, lactic acid in the morning Anxiety, agitation With history of PTSD, anxiety, migraines The patient tested positive for amphetamines This might be a contaminant in the Marijuana she used Use Ativan as needed for anxiety Morphine IV for pain Continue Lexapro for anxiety DVT prophylaxis with subcutaneous heparin addendum: continued to be agitated, c/o pain will tx. to [facility] for higher level of care Diagnosis: Stroke: No - Discharge Data Discharge Date: 04/12/19 Discharge Disposition: DC/Tfer to Acute Hospital 02 Condition: Good - Referral to Home Health Primary Care Physician: PCP Unobtainable - Discharge Diagnosis/Problem(s) (1) Altered mental status SNOMED Code(s): 704479554 ICD Code: R41.82 - ALTERED MENTAL STATUS, UNSPECIFIED Status: Acute Current Visit: Yes Qualifiers: Altered mental status type: unspecified Qualified Code(s): R41.82 - Altered mental status, unspecified (2) Exposure to methamphetamine SNOMED Code(s): 147636751 ICD Code: Z77.29 - CONTACT WITH AND EXPOSURE TO OTHER HAZARDOUS SUBSTANCES Status: Acute Current Visit: Yes (3) Sepsis SNOMED Code(s): 31280881 ICD Code: A41.9 - SEPSIS, UNSPECIFIED ORGANISM Status: Acute Current Visit: Yes Qualifiers: Sepsis type: sepsis due to unspecified organism Sepsis acute organ dysfunction status: without acute organ dysfunction Qualified Code(s): A41.9 - Sepsis, unspecified organism - Patient Instructions Diet: Heart Healthy Diet - Discharge Plan *PRESCRIPTION DRUG MONITORING PROGRAM REVIEWED*: No *COPY OF PRESCRIPTION DRUG MONITORING REPORT IN PATIENT SURENDRA: No Home Medications: Home Meds SUMAtriptan Succinate [Imitrex] 100 mg PO ASDIRECTED PRN 07/05/13 [History] rOPINIRole [Requip] 0.5 mg PO TID 10/27/16 [History] Diclofenac Sodium [Voltaren] 50 mg PO TID 12/31/17 [History] Escitalopram [Lexapro] 20 mg PO DAILY 12/31/17 [History] ALPRAZolam [Xanax] 0.5 mg PO Q6HR PRN 04/12/19 [History] Acetaminophen [Tylenol] 650 mg PO Q4H PRN tablet 04/12/19 [Rx] Heparin Sodium 5,000 units SUBCUT Q8HR vial 04/12/19 [Rx] LORazepam [Ativan] 1 mg IVPUSH Q4H PRN syringe 04/12/19 [Rx] Morphine 1 mg IVPUSH Q4H PRN syringe 04/12/19 [Rx] Ondansetron [Zofran ODT] 4 mg PO Q6H PRN tab.dis 04/12/19 [Rx] Piperacillin/Tazobactam [Zosyn] 3.375 gm IV Q6H vial 04/12/19 [Rx] - Discharge Summary/Plan Comment DC Time >30 min.: No - General Info Date of Service: 04/12/19 Functional Status: Denies: Pain Controlled - Review of Systems Musculoskeletal: Reports: Other (r hip pain) Neurological: Denies: Weakness Psychiatric: Reports: Agitation - Patient Data Vitals - Most Recent: Last Vital Signs Temp 38.4 C H 04/12/19 14:34 Pulse 89 04/12/19 14:34 Resp 20 04/12/19 14:34 BP 130/66 04/12/19 14:34 Pulse Ox 99 04/12/19 14:34 Weight - Most Recent: 60.419 kg I&O - Last 24 hours: Intake & Output 04/12/19 04/12/19 04/12/19 06:59 14:59 22:59 Output Total 300 Balance -300 Lab Results - Last 24 hrs: Laboratory Results - last 24 hr 04/12/19 04/12/19 04/12/19 Range/Units 11:38 11:38 11:38 WBC 20.0 H (5.0-10.0) 10^3/uL RBC 3.82 L (4.2-5.4) 10^6/uL Hgb 10.9 L (12.0-16.0) g/dL Hct 33.0 L (37.0-47.0) % MCV 86.4 (80-100) fL MCH 28.5 (27.0-34.0) pg MCHC 33.0 (33.0-35.0) g/dL Plt Count 352 (150-450) 10^3/uL Neut % (Auto) 92.4 H (42.2-75.2) % Lymph % (Auto) 1.8 L (20.5-50.1) % [place] % (Auto) 5.8 (2-8) % Eos % (Auto) 0.0 L (1.0-3.0) % Baso % (Auto) 0.0 (0.0-1.0) % Sodium 131 L (135-145) mmol/L Potassium 3.2 L (3.6-5.0) mmol/L Chloride 98 L (101-111) mmol/L Carbon Dioxide 25.0 (21.0-31.0) mmol/L Anion Gap 11.2 BUN 7 (7-18) mg/dL Creatinine 0.8 (0.6-1.3) mg/dL Est Cr Clr Drug Dosing 61.86 mL/min Estimated GFR (MDRD) > 60 BUN/Creatinine Ratio 8.75 Glucose 126 H (74-105) mg/dL Lactic Acid 1.1 (0.5-2.2) mmol/L Calcium 8.2 L (8.4-10.2) mg/dl Total Bilirubin 1.1 H (0.2-1.0) mg/dL AST 45 H (10-42) IU/L ALT 43 (10-60) IU/L Alkaline Phosphatase 70 (42-121) IU/L Creatine Kinase 103 (26-174) IU/L Total Protein 7.0 (6.7-8.2) g/dl Albumin 3.5 (3.2-5.5) g/dl Globulin 3.5 Albumin/Globulin Ratio 1.00 Urine Color (YELLOW) Urine Appearance (CLEAR) Urine pH (5.0-9.0) Ur Specific [place] (1.005-1.030) Urine Protein (NEGATIVE) Urine Glucose (UA) (NEGATIVE) Urine Ketones (NEGATIVE) Urine Occult Blood (NEGATIVE) Urine Nitrite (NEGATIVE) Urine Bilirubin (NEGATIVE) Urine Urobilinogen (0.2-1.0) mg/dL Ur Leukocyte Esterase (NEGATIVE) Urine RBC /HPF Urine WBC (0-5/HPF) /HPF Ur Epithelial Cells (NOT SEEN) /HPF Urine Bacteria (0-FEW/HPF) /HPF Urine Mucus (NOT SEEN) /LPF Urine Opiates Screen (NEGATIVE) Ur Oxycodone Screen (NEGATIVE) Urine Methadone Screen (NEGATIVE) Ur Barbiturates Screen (NEGATIVE) U Tricyclic Antidepress (NEGATIVE) Ur Phencyclidine Scrn (NEGATIVE) Ur Amphetamine Screen (NEGATIVE) U Methamphetamines Scrn (NEGATIVE) Urine MDMA Screen (NEGATIVE) U Benzodiazepines Scrn (NEGATIVE) Urine Cocaine Screen (NEGATIVE) U Marijuana (THC) Screen (NEGATIVE) Ethyl Alcohol < 5 mg/dL 04/12/19 04/12/19 Range/Units 12:07 12:07 WBC (5.0-10.0) 10^3/uL RBC (4.2-5.4) 10^6/uL Hgb (12.0-16.0) g/dL Hct (37.0-47.0) % MCV (80-100) fL MCH (27.0-34.0) pg MCHC (33.0-35.0) g/dL Plt Count (150-450) 10^3/uL Neut % (Auto) (42.2-75.2) % Lymph % (Auto) (20.5-50.1) % Taylor % (Auto) (2-8) % Eos % (Auto) (1.0-3.0) % Baso % (Auto) (0.0-1.0) % Sodium (135-145) mmol/L Potassium (3.6-5.0) mmol/L Chloride (101-111) mmol/L Carbon Dioxide (21.0-31.0) mmol/L Anion Gap BUN (7-18) mg/dL Creatinine (0.6-1.3) mg/dL Est Cr Clr Drug Dosing mL/min Estimated GFR (MDRD) BUN/Creatinine Ratio Glucose (74-105) mg/dL Lactic Acid (0.5-2.2) mmol/L Calcium (8.4-10.2) mg/dl Total Bilirubin (0.2-1.0) mg/dL AST (10-42) IU/L ALT (10-60) IU/L Alkaline Phosphatase (42-121) IU/L Creatine Kinase (26-174) IU/L Total Protein (6.7-8.2) g/dl Albumin (3.2-5.5) g/dl Globulin Albumin/Globulin Ratio Urine Color Yellow (YELLOW) Urine Appearance Clear (CLEAR) Urine pH 7.5 (5.0-9.0) Ur Specific [place] 1.015 (1.005-1.030) Urine Protein Negative (NEGATIVE) Urine Glucose (UA) Negative (NEGATIVE) Urine Ketones Negative (NEGATIVE) Urine Occult Blood Trace-intact H (NEGATIVE) Urine Nitrite Negative (NEGATIVE) Urine Bilirubin Negative (NEGATIVE) Urine Urobilinogen 1.0 (0.2-1.0) mg/dL Ur Leukocyte Esterase Negative (NEGATIVE) Urine RBC 5-10 H /HPF Urine WBC 0-5 (0-5/HPF) /HPF Ur Epithelial Cells Few (NOT SEEN) /HPF Urine Bacteria Rare (0-FEW/HPF) /HPF Urine Mucus Few H (NOT SEEN) /LPF Urine Opiates Screen Negative (NEGATIVE) Ur Oxycodone Screen Negative (NEGATIVE) Urine Methadone Screen Negative (NEGATIVE) Ur Barbiturates Screen Negative (NEGATIVE) U Tricyclic Antidepress Negative (NEGATIVE) Ur Phencyclidine Scrn Negative (NEGATIVE) Ur Amphetamine Screen Negative (NEGATIVE) U Methamphetamines Scrn Positive H (NEGATIVE) Urine MDMA Screen Negative (NEGATIVE) U Benzodiazepines Scrn Positive H (NEGATIVE) Urine Cocaine Screen Negative (NEGATIVE) U Marijuana (THC) Screen Positive H (NEGATIVE) Ethyl Alcohol mg/dL RENATO Results - Last 24 hrs: Microbiology 04/12/19 12:47 Influenza Type A Antigen Screen - Final Nasal, Unspecified NEGATIVE INFLUENZA A VIRUS AG REFERENCE RANGE: NEGATIVE Influenza Type B Antigen Screen - Final NEGATIVE INFLUENZA B VIRUS AG REFERENCE RANGE: NEGATIVE 04/12/19 12:47 Group A Streptococcus Rapid Screen - Final Throat NEGATIVE STREP A SCREEN REFERENCE RANGE: NEGATIVE Med Orders - Current: Current Medications Acetaminophen (Tylenol) 650 mg PO Q4H PRN PRN Reason: Pain (Mild 1-3)/fever Last Admin: 04/12/19 15:42 Dose: 650 mg Heparin Sodium (Porcine) (Heparin Sodium) 5,000 units SUBCUT Q8HR [facility] Piperacillin Sod/Tazobactam (Sod 3.375 gm/ Sodium Chloride) 100 mls @ 200 mls/ hr IV Q6H [facility] Potassium Chloride/Sodium Chloride (Normal Saline With 20 Meq Kcl) 1,000 mls @ 75 mls/hr IV ASDIRECTED [facility] Ibuprofen (Motrin) 400 mg PO Q6H PRN PRN Reason: Pain (moderate 4-6) Lorazepam (Ativan) 1 mg IVPUSH Q4H PRN PRN Reason: Anxiety Last Admin: 04/12/19 14:51 Dose: 1 mg Morphine Sulfate (Morphine) 1 mg IVPUSH Q4H PRN PRN Reason: severe pain Last Admin: 04/12/19 15:42 Dose: 1 mg Non-Formulary Medication (Escitalopram [Lexapro]) 20 mg PO DAILY [facility] Non-Formulary Medication (Ropinirole [Requip]) 0.5 mg PO TID [facility] Ondansetron HCl (Zofran Odt) 4 mg PO Q6H PRN PRN Reason: nausea, able to take PO Ondansetron HCl (Zofran) 4 mg IVPUSH Q4H PRN PRN Reason: Nausea/Vomiting Potassium Chloride (Klor-Con 10) 40 meq PO Q6H [facility] Stop: 04/12/19 21:01 Sodium Chloride (Saline Flush) 10 ml FLUSH ASDIRECTED PRN PRN Reason: Keep Vein Open Last Admin: 04/12/19 13:02 Dose: 10 ml Zolpidem Tartrate (Ambien) 5 mg PO BEDTIME PRN PRN Reason: Sleep Discontinued Medications Diphenhydramine HCl (Benadryl) 25 mg IVPUSH ONETIME ONE Stop: 04/12/19 12:02 Last Admin: 04/12/19 13:01 Dose: 25 mg Fentanyl (Sublimaze) 50 mcg IVPUSH ONETIME ONE Stop: 04/12/19 11:05 Last Admin: 04/12/19 11:17 Dose: 50 mcg Sodium Chloride (Normal Saline) 1,000 mls @ 999 mls/hr IV .BOLUS ONE Stop: 04/12/19 12:32 Last Admin: 04/12/19 13:04 Dose: 999 mls/hr Piperacillin Sod/Tazobactam (Sod 3.375 gm/ Sodium Chloride) 100 mls @ 200 mls/ hr IV ONETIME ONE Stop: 04/12/19 12:30 Last Admin: 04/12/19 13:04 Dose: 200 mls/hr Vancomycin HCl 1 gm/ Sodium (Chloride) 250 mls @ 167 mls/hr IV ONETIME ONE Stop: 04/12/19 13:29 Last Admin: 04/12/19 14:02 Dose: 167 mls/hr Sodium Chloride (Normal Saline) 1,000 mls @ 999 mls/hr IV .BOLUS ONE Stop: 04/12/19 13:18 Last Admin: 04/12/19 12:20 Dose: 999 mls/hr Lorazepam (Ativan) 1 mg IVPUSH ONETIME ONE Stop: 04/12/19 15:37 Midazolam HCl (Versed 1 Mg/Ml) 2 mg IVPUSH ONETIME ONE Stop: 04/12/19 11:11 Last Admin: 04/12/19 13:04 Dose: 2 mg Morphine Sulfate (Morphine) 1 mg IVPUSH ONETIME ONE Stop: 04/12/19 13:57 Last Admin: 04/12/19 14:09 Dose: 1 mg Ondansetron HCl (Zofran) 4 mg IV ONETIME ONE Stop: 04/12/19 11:06 Last Admin: 04/12/19 11:17 Dose: 4 mg - Exam General: Reports: Alert, Oriented, Moderate Distress Neck: Reports: Supple Lungs: Reports: Clear to Auscultation Cardiovascular: Reports: Regular Rate Extremities: Limited Range of Motion (r hip - due to pain) Skin: Reports: Warm, Dry Neurological: Reports: No New Focal Deficit Psy/Mental Status: Reports: Alert, Agitated
[2019-04-12] MEDS ORDERED: Piperacillin/Tazobactam 3.375 GM in Sodium Chloride 0.9% 100 ML IV SCH (18:00)
[2019-04-12 20:07] VITALS: BP 139/59; PULSE 100
[2019-04-12] MEDS ORDERED: ROPINIROLE 0.5 MG PO SCH (21:00)
[2019-04-12] MEDS ORDERED: Heparin Sodium 5,000 Units/ML Vial SUBCUT SCH (22:00)
[2019-04-13] MEDS ORDERED: Non-Formulary Medication 1 Each (Escitalopram [Lexapro] 20 MG) PO SCH (09:00)
== END 2019-04-12 22:50 ==
LOC: DL.ED 11:03 → EEVIPCON 13:16 → DL.MS 13:16
PROVIDERS: ADMIT Internal Medicine; ATTEND Internal Medicine
DX: M25.551 Pain in right hip (principal); A41.9 Sepsis, unspecified organism; F15.10 Other stimulant abuse, uncomplicated; R19.7 Diarrhea, unspecified; I10 Essential (primary) hypertension; F41.9 Anxiety disorder, unspecified; G43.909 Migraine, unspecified, not intractable, without status migrainosus; Z91.040 Latex allergy status; Z96.641 Presence of right artificial hip joint; Z79.899 Other long term (current) drug therapy
CPT/HCPCS: 36415; 71045; 73501; 80053; 80305; 81001; 82550; 83605; 85025; 87040; 87081; 87430; 87804; A9270; G0480; J1200; J2060; J2250; J2270; J2405; J2543; J3010; J3370; J3480; J7030; J7050; 51702; 96374; 96375; 99284-25

== ENCOUNTER 2019-12-19 06:20 | Emergency (ER) | payer MEDICARE, MEDICAID ==
[2019-12-19 06:38] VITALS: BP 111/52; PULSE 74
--- NOTE | 2019-12-19 06:56 | EDM.PDOC ---
ED HPI GENERAL MEDICAL PROBLEM - General Chief Complaint: Abdominal Pain Stated Complaint: APPENDIX POSSIBLE PER PT Time Seen by Provider: 12/19/19 06:40 Source of Information: Reports: Patient, RN History Limitations: Reports: No Limitations - History of Present Illness INITIAL COMMENTS - FREE TEXT/NARRATIVE: 59 year old female with a PMH of anxiety, depression, migraine and restless legs syndrome who presents to the ER with complaints of right side abdominal pain x 1 day. Patient reports having chills one day prior to having abdominal pain. She reports nausea but no vomiting. She has regular BM and no urinary problems. Pain is constant at 5-6/10 and worst with movement. She has tried tylenol with little relief. No abdominal surgeries apart from C-sections. She denies fever, chills, diarrhea, constipation, bloody stools, CP, SOB or palpitations. Treatments INTAKE NURSE: Reports: Acetaminophen Right Abdomen Pain Score (Numeric/FACES): 6 - Related Data Allergies Allergy/AdvReac Type Severity Reaction Status Date / Time latex Allergy Other Verified 12/19/19 06:38 Home Meds: Home Meds SUMAtriptan succinate [Imitrex] 100 mg PO ASDIRECTED PRN 07/05/13 [History] rOPINIRole [Requip] 0.5 mg PO TID 10/27/16 [History] Diclofenac Sodium [Voltaren] 50 mg PO TID 12/31/17 [History] Escitalopram [Lexapro] 20 mg PO DAILY 12/31/17 [History] ALPRAZolam [Xanax] 0.5 mg PO Q6HR PRN 04/12/19 [History] Acetaminophen [Tylenol] 650 mg PO Q4H PRN tablet 04/12/19 [Rx] Heparin Sodium 5,000 units SUBCUT Q8HR vial 04/12/19 [Rx] LORazepam [Ativan] 1 mg IVPUSH Q4H PRN syringe 04/12/19 [Rx] Morphine 1 mg IVPUSH Q4H PRN syringe 04/12/19 [Rx] Ondansetron [Zofran ODT] 4 mg PO Q6H PRN tab.dis 04/12/19 [Rx] Piperacillin/Tazobactam [Zosyn] 3.375 gm IV Q6H vial 04/12/19 [Rx] Past Medical History HEENT History: Reports: Impaired Vision Cardiovascular History: Reports: Hypertension Respiratory History: Reports: None Gastrointestinal History: Reports: GERD, Hepatitis [employer] TE[employer]ER History: Reports: , 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) Other [employer] TE[employer]ER History: tubal Ligation Musculoskeletal History: Reports: Osteoarthritis Neurological History: Reports: Headaches, Chronic, Migraines Psychiatric History: Reports: Addiction, Anxiety, Depression Endocrine/Metabolic History: Reports: None Hematologic History: Reports: Anemia, Blood Transfusion(s) Immunologic History: Reports: None Oncologic (Cancer) History: Reports: None Dermatologic History: Reports: None - Infectious Disease History Infectious Disease History: Reports: Chicken Pox, Hepatitis C, Measles, Mumps - Past Surgical History GI Surgical History: Reports: Colonoscopy Female Surgical History: Reports: Section Musculoskeletal Surgical History: Reports: Hip Replacement, 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) Other Musculoskeletal Surgeries/Procedures:: hip replacement x 4. Social & Family History - Family History Family Medical History: Noncontributory - Tobacco Use Smoking Status *Q: Never Smoker Second Hand Smoke Exposure: No - Caffeine Use Caffeine Use: Reports: Soda Caffeine Use Comment: Heavy soda drinker - Recreational Drug Use Recreational Drug Use: Yes Drug Use in Last 12 Months: No - Living Situation & Occupation Living situation: Reports: with Family Occupation: Disabled ED ROS GENERAL - Review of Systems Review Of Systems: Comprehensive ROS is negative, except as noted in HPI. ED EXAM, GI/ABD - Physical Exam Exam: See Below Exam Limited By: No Limitations General Appearance: Alert, Moderate Distress Respiratory/Chest: No Respiratory Distress, Lungs Clear, Normal Breath Sounds, No Accessory Muscle Use, Chest Non-Tender Cardiovascular: Normal Peripheral Pulses, Regular Rate, Rhythm, No Edema, No Gallop, No JVD, No Murmur, No Rub GI/Abdominal Exam: Normal Bowel Sounds, Soft, Tender (Right sided abdominal pain with pain elicited with light palpitations) (Female) Exam: Deferred Rectal (Female) Exam: Deferred Extremities: Normal Inspection, Normal Range of Motion, Non-Tender, Normal Capillary Refill, No Pedal Edema Neurological: Alert, Oriented Psychiatric: Normal Affect, Normal Mood Skin Exam: Warm Lymphatic: No Adenopathy Course - Vital Signs Last Recorded V/S: Last Vital Signs Temp 98 F 12/19/19 06:31 Pulse 74 12/19/19 06:31 Resp 19 12/19/19 06:31 BP 111/52 L 12/19/19 06:31 Pulse Ox 99 12/19/19 06:31 - Orders/Labs/Meds Orders: Active Orders 24 hr Category Date Time Status URINALYSIS W/MICROSCOPIC [UA W/MICROSCOPIC] [URIN] Stat Lab 12/19/19 06:45 Ordered Labs: Laboratory Tests 12/19/19 12/19/19 Range/Units 06:56 06:56 WBC 6.6 (5.0-10.0) 10^3/uL RBC 4.00 L (4.2-5.4) 10^6/uL Hgb 11.7 L (12.0-16.0) g/dL Hct 35.4 L (37.0-47.0) % MCV 88.5 (80-100) fL MCH 29.3 (27.0-34.0) pg MCHC 33.1 (33.0-35.0) g/dL Plt Count 270 D (150-450) 10^3/uL Neut % (Auto) 61.5 (42.2-75.2) % Lymph % (Auto) 19.5 L (20.5-50.1) % [place] % (Auto) 12.9 H (2-8) % Eos % (Auto) 5.6 H (1.0-3.0) % Baso % (Auto) 0.5 (0.0-1.0) % Sodium 139 (136-145) mmol/L Potassium 3.5 (3.5-5.1) mmol/L Chloride 102 (98-107) mmol/L Carbon Dioxide 28 (21-32) mmol/L Anion Gap 12.5 (7-13) mEq/L BUN 12 (7-18) mg/dL Creatinine 1.03 H (0.55-1.02) mg/dL Est Cr Clr Drug Dosing 45.94 mL/min Estimated GFR (MDRD) 55 BUN/Creatinine Ratio 11.7 (No establ ref range) Glucose 115 H (74-99) mg/dL Calcium 8.2 L (8.5-10.1) mg/dL Total Bilirubin 0.2 (0.2-1.0) mg/dL AST 43 H (15-37) U/L ALT 49 (14-59) U/L Alkaline Phosphatase 85 (46-116) U/L Total Protein 6.7 (6.4-8.2) g/dL Albumin 2.9 L (3.4-5.0) g/dL Globulin 3.8 Albumin/Globulin Ratio 0.76 Meds: Medications Discontinued Medications Generic Name Dose Route Start Last Admin Trade Name Freq PRN Reason Stop Dose Admin Ketorolac Tromethamine 30 mg 12/19/19 07:04 12/19/19 07:13 Toradol IVPUSH 12/19/19 07:05 30 mg ONETIME ONE Administration - Radiology Interpretation Free Text/Narrative:: IMPRESSION: 1. Mild right upper abdominal ureteral wall thickening. Upper urinary tract infection not excluded. Clinical correlation with urinalysis is recommended. 2. No upper urinary tract calculi. 3. No evidence of obstructive uropathy. 4. Postoperative right hip changes as above. 5. Nonspecific thick walled fluid collection anterior to the right hip. Clinical correlation with the patient's specific symptomatology/signs is recommended. - Re-Assessments/Exams Free Text/Narrative Re-Assessment/Exam: 59 year old female who presents to the ER with right sided abdominal pain. No fever/chill except nausea present at this time. Toradol 30 mg IM with relief win pain. UA negative for a UTI. Cr.1.03 with normal BUN. Reviewed labs and CT scan results with patient. Will send her home with an RX for Keflex. She will follow up with her PCP in three days.Encouraged her to push fluids and rest. Tylenol prn for pain. Patient verbalized understanding. Departure - Departure Time of Disposition: 08:50 Disposition: Home, Self-Care 01 Condition: Good Clinical Impression: Abdominal pain Qualifiers: Abdominal location: right lower quadrant Qualified Code(s): R10.31 - Right lower quadrant pain - Discharge Information Instructions: Abdominal Pain, Adult, [id number] Forms: ED Department Discharge Additional Instructions: RX for Keflex send home with patient. Follow up with PCP in three days. Push fluids. and rest. Tylenol prn for pain. Patient verbalized understanding. Sepsis Event Note (ED) - Evaluation Sepsis Screening Result: No Definite Risk - Focused Exam Vital Signs: Vital Signs Temp Pulse Resp BP Pulse Ox 12/19/19 06:31 98 F 74 19 111/52 L 99 - My Orders Last 24 Hours: My Active Orders 12/19/19 06:45 URINALYSIS W/MICROSCOPIC [UA W/MICROSCOPIC] [URIN] Stat - Assessment/Plan Last 24 Hours: My Active Orders 12/19/19 06:45 URINALYSIS W/MICROSCOPIC [UA W/MICROSCOPIC] [URIN] Stat
[2019-12-19] MEDS ORDERED: Ketorolac 30 MG/ML SDV IVPUSH ONE (07:04)
[2019-12-19 07:22] LABS: ANION GAP 12.5 mEq/L (7-13)
--- NOTE | 2019-12-19 07:40 | CT ---
PROCEDURE INFORMATION: Exam: CT Abdomen And Pelvis Without Contrast Exam date and time: 12/19/2019 7:18 AM Age: 59 years old Clinical indication: Abdominal pain; Flank; Right; Additional info: Right sided abdominal pain, renal stone? TECHNIQUE: Imaging protocol: Computed tomography of the abdomen and pelvis without contrast. Radiation optimization: All CT scans at this facility use at least one of these dose optimization techniques: automated exposure control; mA and/or kV adjustment per patient size (includes targeted exams where dose is matched to clinical indication); or iterative reconstruction. COMPARISON: No relevant prior studies available. FINDINGS: Liver: Normal. No mass. Gallbladder and bile ducts: Normal. No calcified stones. No ductal dilation. Pancreas: Normal. No ductal dilation. Spleen: A small anterior splenule is present. Adrenals: Normal. No mass. Kidneys and ureters: Mild right upper abdominal ureteral wall thickening (series 2, image 53; series 3, image 42). No upper urinary tract calculi. No evidence of obstructive uropathy. Stomach and bowel: Unremarkable. No obstruction. No mucosal thickening. Appendix: The vermiform appendix is normal. Intraperitoneal space: Unremarkable. No free air. No significant fluid collection. Vasculature: Mild aortic atherosclerotic calcification without aneurysm. The iliac arteries show mild bilateral atherosclerotic calcifications without evidence of aneurysm. Left pelvic phleboliths. Lymph nodes: No enlarged lymph nodes. Bladder: Partially obscured by streak artifact. No calculi as visualized. Reproductive: Partially obscured by streak artifact inferiorly, unremarkable as visualized. Bones/joints: Nonspecific thick walled fluid collection anterior to the right hip measuring 2.0 x 2.5 x 1.7 cm (series 2, images 106-111). Right total hip replacement with streak artifact. Healed right inferior pubic ramus fracture. Healed the left iliac bone fracture. Previous resection of the right acetabular column. Soft tissues: Unremarkable. IMPRESSION: 1. Mild right upper abdominal ureteral wall thickening. Upper urinary tract infection not excluded. Clinical correlation with urinalysis is recommended. 2. No upper urinary tract calculi. 3. No evidence of obstructive uropathy. 4. Postoperative right hip changes as above. 5. Nonspecific thick walled fluid collection anterior to the right hip. Clinical correlation with the patient's specific symptomatology/signs is recommended.
== END 2019-12-19 09:05 | disposition home or self-care (01) ==
LOC: DL.ED 06:20
DX: R10.31 Right lower quadrant pain (principal); I10 Essential (primary) hypertension; F41.9 Anxiety disorder, unspecified; F32.9 Major depressive disorder, single episode, unspecified; Z91.040 Latex allergy status; Z79.899 Other long term (current) drug therapy
CPT/HCPCS: 36415; 74176; 80053; 81001; 85025; 96374; 99284; J1885

== ENCOUNTER 2019-12-29 19:05 | Emergency (ER) | payer MEDICARE, MEDICAID ==
[2019-12-29] MEDS ORDERED: Acetaminophen/HYDROcodone 325-10 MG Tab PO ONE (19:06)
[2019-12-29 19:25] VITALS: BP 136/90; PULSE 94
[2019-12-29 19:57] LABS: ANION GAP 12.9 mEq/L (7-13); CHLORIDE,CL 103 mmol/L (98-107); SODIUM,NA 136 mmol/L (136-145)
[2019-12-29] MEDS ORDERED: Ondansetron 4 MG/2 ML SDV IVPUSH ONE (20:12)
[2019-12-29] MEDS ORDERED: fentaNYL 100 MCG/2 ML SDV IVPUSH ONE (20:13)
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
[2019-12-29] MEDS ORDERED: HYDROmorphone 1 MG/ML Syringe IVPUSH ONE (21:20)
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
[2019-12-29] MEDS ORDERED: Acetaminophen/HYDROcodone 325-10 MG Tab ONE (23:08)
== END 2019-12-29 23:19 | disposition home or self-care (01) ==
LOC: DL.ED 19:05
DX: S90.511A Abrasion, right ankle, initial encounter (principal); S70.312A Abrasion, left thigh, initial encounter; M25.511 Pain in right shoulder; M54.2 Cervicalgia; I10 Essential (primary) hypertension; F41.9 Anxiety disorder, unspecified; F32.9 Major depressive disorder, single episode, unspecified; M19.90 Unspecified osteoarthritis, unspecified site; Z91.040 Latex allergy status; Z79.899 Other long term (current) drug therapy; Z98.890 Other specified postprocedural states; V86.56XA Driver of dirt bike or motor/cross bike injured in nontraffic accident, initial encounter
CPT/HCPCS: 36415; 70450; 72125; 72192; 73010-RT; 73030-RT; 73060-RT; 73590-RT; 73610-RT; 80053; 80307; 81001; 82150; 83690; 85025; 85610; 96374; 96375; 99283; 99285-25; A9270-GY; J1170; J2405; J3010

== ENCOUNTER 2020-03-03 11:25 | Emergency (ER) | payer MEDICARE, MEDICAID ==
--- NOTE | 2020-03-03 11:38 | EDM.PDOC ---
ED HPI GENERAL MEDICAL PROBLEM - General Stated Complaint: LR AMBULANCE Time Seen by Provider: 03/03/20 11:25 Source of Information: Reports: Patient History Limitations: Reports: No Limitations - History of Present Illness INITIAL COMMENTS - FREE TEXT/NARRATIVE: Patient comes emergency department today from home with complaints of right hip pain. This patient has had increasing right hip pain over the past 3 weeks. She has had a total of 6 surgeries to her right hip in the recent last few years. She currently has a temporary antibiotic hip in her right hip due to recurrent infections. She has not had any falls trauma or injury to her right hip. Over the past 3 weeks she has had increasing pain and today it is bearable pain. This pain was so bad she was unable to get up. She is typically able to ambulate with a walker but today she can barely get out of bed due to the pain. She denies any paresthesias or change in the functionality of her lower extremities. No loss of bowel or bladder. No fever no chills. No cough congestion. No chest pain no shortness of breath or difficulty breathing. No COVID exposure no COVID symptoms Right Hip Pain Score (Numeric/FACES): 7 - Related Data Allergies Allergy/AdvReac Type Severity Reaction Status Date / Time latex Allergy Other Verified 03/03/20 11:40 Home Meds: Home Meds SUMAtriptan succinate [Imitrex] 100 mg PO ASDIRECTED PRN 07/05/13 [History] rOPINIRole [Requip] 0.5 mg PO TID 10/27/16 [History] Escitalopram [Lexapro] 10 mg PO DAILY 12/31/17 [History] ALPRAZolam [Xanax] 0.5 mg PO Q6HR PRN 04/12/19 [History] Acetaminophen [Tylenol] 650 mg PO Q4H PRN tablet 04/12/19 [Rx] Ledipasvir/Sofosbuvir [Harvoni 90-400 mg Tablet] 1 tab PO DAILY 03/03/20 [History] Past Medical History HEENT History: Reports: Impaired Vision Cardiovascular History: Reports: Hypertension Respiratory History: Reports: None Gastrointestinal History: Reports: GERD, Hepatitis 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: , 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) Other PROTOTYPE MACHINE OPERATOR History: tubal Ligation Musculoskeletal History: Reports: Osteoarthritis Neurological History: Reports: Headaches, Chronic, Migraines Psychiatric History: Reports: Addiction, Anxiety, Depression Endocrine/Metabolic History: Reports: None Hematologic History: Reports: Anemia, Blood Transfusion(s) Immunologic History: Reports: None Oncologic (Cancer) History: Reports: None Dermatologic History: Reports: None - Infectious Disease History Infectious Disease History: Reports: Chicken Pox, Hepatitis C, Measles, Mumps - Past Surgical History GI Surgical History: Reports: Colonoscopy Female Surgical History: Reports: Section Musculoskeletal Surgical History: Reports: Hip Replacement, 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) Other Musculoskeletal Surgeries/Procedures:: hip replacement x 5. Social & Family History - Family History Family Medical History: Noncontributory - Caffeine Use Caffeine Use: Reports: Soda Caffeine Use Comment: 12 pack/day - Living Situation & Occupation Living situation: Reports: with Family Occupation: Disabled ED ROS GENERAL - Review of Systems Review Of Systems: Comprehensive ROS is negative, except as noted in HPI. ED EXAM, GENERAL - Physical Exam Exam: See Below Exam Limited By: No Limitations General Appearance: Alert, WD/WN, No Apparent Distress Respiratory/Chest: No Respiratory Distress, Lungs Clear, Normal Breath Sounds, Chest Non-Tender Cardiovascular: Normal Peripheral Pulses, Regular Rate, Rhythm GI/Abdominal: Normal Bowel Sounds, Soft, Non-Tender (Female) Exam: Deferred Rectal (Female) Exam: Deferred Back Exam: Normal Inspection, Full Range of Motion Extremities: Normal Inspection (She has some mild tenderness to the right hip. She has a well-healed surgical incision. There is no overt bony deformity.), Limited Range of Motion (To the right hip.) Neurological: Alert, Oriented, Normal Cognition, No Motor/Sensory Deficits Psychiatric: Normal Affect, Normal Mood Skin Exam: Warm, Dry, Intact, Normal Color, No Rash Course - Vital Signs Last Recorded V/S: Last Vital Signs Temp 98.4 F 03/03/20 11:34 Pulse 78 03/03/20 11:34 Resp 16 03/03/20 11:34 BP 118/81 03/03/20 11:34 Pulse Ox 98 03/03/20 11:34 - Orders/Labs/Meds Orders: Active Orders 24 hr Category Date Time Status Peripheral IV Care [RC] . DIRECTED Care 03/03/20 11:41 Active Sodium Chloride 0.9% [Saline Flush] Med 03/03/20 11:41 Active 10 ml FLUSH ASDIRECTED PRN Peripheral IV Insertion Adult [OM.PC] Stat Oth 03/03/20 11:41 Ordered Medication Orders Sodium Chloride (Saline Flush) 10 ml FLUSH ASDIRECTED PRN PRN Reason: Keep Vein Open Last Admin: 03/03/20 13:38 Dose: 10 ml Documented by: Admin: 03/03/20 13:17 Dose: 10 ml Documented by: Admin: 03/03/20 12:05 Dose: 10 ml Documented by: Admin: 03/03/20 12:00 Dose: 10 ml Documented by: JOSE Labs: Laboratory Tests 03/03/20 03/03/20 Range/Units 11:50 11:50 WBC 6.7 (5.0-10.0) 10^3/uL RBC 3.94 L (4.2-5.4) 10^6/uL Hgb 11.6 L (12.0-16.0) g/dL Hct 34.9 L (37.0-47.0) % MCV 88.6 (80-100) fL MCH 29.4 (27.0-34.0) pg MCHC 33.2 (33.0-35.0) g/dL Plt Count 332 (150-450) 10^3/uL Neut % (Auto) 53.9 (42.2-75.2) % Lymph % (Auto) 19.9 L (20.5-50.1) % [place] % (Auto) 10.3 H (2-8) % Eos % (Auto) 15.2 H (1.0-3.0) % Baso % (Auto) 0.7 (0.0-1.0) % Add Manual Diff Yes Neutrophils % (Manual) 47 (42-75) % Lymphocytes % (Manual) 25 (20-50) % Monocytes % (Manual) 12 H (2-8) % Eosinophils % (Manual) 16 H (1-3) % Sodium 139 (136-145) mmol/L Potassium 3.8 (3.5-5.1) mmol/L Chloride 103 (98-107) mmol/L Carbon Dioxide 30 (21-32) mmol/L Anion Gap 9.8 (7-13) mEq/L BUN 8 (7-18) mg/dL Creatinine 0.95 (0.55-1.02) mg/dL Est Cr Clr Drug Dosing 49.81 mL/min Estimated GFR (MDRD) > 60 Glucose 70 L (74-99) mg/dL Calcium 9.0 (8.5-10.1) mg/dL Meds: Medications Generic Name Dose Route Start Last Admin Trade Name Freq PRN Reason Stop Dose Admin Sodium Chloride 10 ml 03/03/20 11:41 03/03/20 13:38 Saline Flush FLUSH 10 ml ASDIRECTED PRN Administration Keep Vein Open Discontinued Medications Generic Name Dose Route Start Last Admin Trade Name Freq PRN Reason Stop Dose Admin Diphenhydramine HCl 25 mg 03/03/20 13:30 03/03/20 13:38 Benadryl IVPUSH 03/03/20 13:31 25 mg ONETIME ONE Administration Hydromorphone HCl 1 mg 03/03/20 11:41 03/03/20 12:06 Dilaudid IVPUSH 03/03/20 11:42 1 mg ONETIME ONE Administration Hydromorphone HCl 1 mg 03/03/20 13:03 03/03/20 13:17 Dilaudid IVPUSH 03/03/20 13:04 1 mg ONETIME ONE Administration Ondansetron HCl 4 mg 03/03/20 11:57 03/03/20 12:01 Zofran IV 03/03/20 11:58 4 mg ONETIME ONE Administration Orphenadrine Citrate 60 mg 03/03/20 11:41 03/03/20 12:03 Norflex IV 03/03/20 11:42 60 mg ONETIME ONE Administration - Radiology Interpretation Free Text/Narrative:: X-ray of the right hip and pelvis per radiology shows apparent new fractures shearing base of the 2 anchoring screws fixating the acetabular component of the total hip prosthetic to the ipsilateral right hemipelvis. No sign of other prosthetic fracture loosening or dislocation of the total right hip prosthesis. - Re-Assessments/Exams Free Text/Narrative Re-Assessment/Exam: 03/03/20 13:42 The patient received a total of 2 mg of dilaudid and norflex with little pain relief. Also gave some benadryl for anxiety. Xray of the hip shows shearing of the anchoring pins of acetabular piece of the implant. No other fracture. I called and spoke with Dr. Grimm at [facility] in [place] where her surgeries have been and where she needs to be seen tomorrow. HPI ER course findings and concerns were relayed to him. He accepted the patient in transfer at this time with no new orders. 03/03/20 14:30 I discussed the plan of care with the patient. She is comfortable with this plan and her questions answered. Departure - Departure Time of Disposition: 13:45 Disposition: DC/Tfer to [facility] 02 Clinical Impression: Fracture of prosthetic hip Qualifiers: Encounter type: initial encounter Qualified Code(s): T84.019A - Broken internal joint prosthesis, unspecified site, initial encounter - Discharge Information Sepsis Event Note (ED) - Focused Exam Vital Signs: Vital Signs Temp Pulse Resp BP Pulse Ox 03/03/20 11:34 98.4 F 78 16 118/81 98 - My Orders Last 24 Hours: My Active Orders 03/03/20 11:41 Peripheral IV Care [RC] . DIRECTED Sodium Chloride 0.9% [Saline Flush] 10 ml FLUSH ASDIRECTED PRN Peripheral IV Insertion Adult [OM.PC] Stat - Assessment/Plan Last 24 Hours: My Active Orders 03/03/20 11:41 Peripheral IV Care [RC] . DIRECTED Sodium Chloride 0.9% [Saline Flush] 10 ml FLUSH ASDIRECTED PRN Peripheral IV Insertion Adult [OM.PC] Stat
[2020-03-03 11:39] VITALS: BP 118/81; PULSE 78
[2020-03-03] MEDS ORDERED: HYDROmorphone 1 MG/ML Syringe IVPUSH ONE ×2 (11:41→13:03)
[2020-03-03] MEDS ORDERED: Orphenadrine 60 MG/2 ML Inj IV ONE (11:41)
[2020-03-03] MEDS ORDERED: Ondansetron 4 MG/2 ML SDV IV ONE (11:57)
[2020-03-03] MEDS: Sodium Chloride 0.9% 10 ML Syringe FLUSH PRN ×4 (12:00→13:38)
[2020-03-03 12:12] LABS: ANION GAP 9.8 mEq/L (7-13); CHLORIDE,CL 103 mmol/L (98-107); SODIUM,NA 139 mmol/L (136-145)
--- NOTE | 2020-03-03 13:19 | CR ---
EXAMINATION: Hip Min 2V w Pelvis Rt SEX: Female AGE: 59 years CLINICAL HISTORY: 59-year-old female complaining of RIGHT HIP PAIN (CT scan pelvis 29 December 2019 confirmed right hip prosthesis anchored with 2 screws in the bony acetabulum right hemipelvis and 2 wires encircling the proximal right femur. INTERPRETATION: Abnormal. 1. *Apparent new fractures (shearing) base of the "2 anchoring screws" fixing the acetabular component of total right hip prosthesis to the ipsilateral right hemipelvis. 2. No sign of other prosthetic fracture, loosening or dislocation of the total right hip prosthesis. 3. Normal appearance contralateral left hip i.e. no arthritic degenerative change, pathologic skeletal lesion, left hip fracture or dislocation. Deformity contralateral left hemipelvis characteristic of old trauma (fracture).
[2020-03-03] MEDS ORDERED: diphenhydrAMINE 50 MG/ML SDV IVPUSH ONE (13:30)
== END 2020-03-03 14:31 ==
LOC: DL.ED 11:25
DX: T84.010A Broken internal right hip prosthesis, initial encounter (principal); F41.9 Anxiety disorder, unspecified; F32.9 Major depressive disorder, single episode, unspecified; I10 Essential (primary) hypertension; Z79.899 Other long term (current) drug therapy; Z91.040 Latex allergy status
CPT/HCPCS: 36415; 73502; 80048; 85025; 96374; 96375; 96376; 99285; J1170; J1200; J2360; J2405

== ENCOUNTER 2020-05-12 20:49 | Emergency (ER) | payer MEDICARE, MEDICAID ==
[2020-05-12] MEDS ORDERED: Lidocaine 1% 30 ML SDV INJECT ONE (20:51)
[2020-05-12] MEDS ORDERED: Bacitracin Oint 1 GM U/D Packet TOP ONE (20:51)
[2020-05-12] MEDS ORDERED: Lidocaine 1% 30 ML SDV ONE (20:52)
--- NOTE | 2020-05-12 21:30 | EDM.PDOC ---
ED HPI GENERAL MEDICAL PROBLEM - General Chief Complaint: Laceration Stated Complaint: RIGHT WRIST LACERATION Time Seen by Provider: 05/12/20 21:10 Source of Information: Reports: Patient History Limitations: Reports: No Limitations - History of Present Illness INITIAL COMMENTS - FREE TEXT/NARRATIVE: This 60 yo female patient reports to the ED due to falling on her right arm and wrist with a laceration to the wrist. The patient reports she was carrying a lead atg developer knife in her sleeve while she took her dog for a walk when she tripped. Onset: Today Duration: Minutes:, Constant Location: Reports: Upper Extremity, Right Quality: Reports: Ache, Dull Severity: Moderate Improves with: Reports: None Worsens with: Reports: None Context: Reports: Other (ground level fall) Associated Symptoms: Reports: No Other Symptoms Right Wrist Pain Score (Numeric/FACES): 8 - Related Data Allergies Allergy/AdvReac Type Severity Reaction Status Date / Time latex Allergy Other Verified 05/12/20 20:51 Home Meds: Home Meds SUMAtriptan succinate [Imitrex] 100 mg PO ASDIRECTED PRN 07/05/13 [History] rOPINIRole [Requip] 0.5 mg PO TID 10/27/16 [History] Escitalopram [Lexapro] 10 mg PO DAILY 12/31/17 [History] ALPRAZolam [Xanax] 0.5 mg PO Q6HR PRN 04/12/19 [History] Acetaminophen [Tylenol] 650 mg PO Q4H PRN tablet 04/12/19 [Rx] Gabapentin [Neurontin] 100 mg PO DAILY PRN 05/12/20 [History] Past Medical History HEENT History: Reports: Impaired Vision Cardiovascular History: Reports: Hypertension Respiratory History: Reports: None Gastrointestinal History: Reports: GERD, Hepatitis 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: , 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) Other CATTERY OPERATOR History: tubal Ligation Musculoskeletal History: Reports: Osteoarthritis Neurological History: Reports: Headaches, Chronic, Migraines Psychiatric History: Reports: Addiction, Anxiety, Depression Endocrine/Metabolic History: Reports: None Hematologic History: Reports: Anemia, Blood Transfusion(s) Immunologic History: Reports: None Oncologic (Cancer) History: Reports: None Dermatologic History: Reports: None - Infectious Disease History Infectious Disease History: Reports: Chicken Pox, Hepatitis C, Measles, Mumps - Past Surgical History GI Surgical History: Reports: Colonoscopy Female Surgical History: Reports: Section Musculoskeletal Surgical History: Reports: Hip Replacement, 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) Other Musculoskeletal Surgeries/Procedures:: hip replacement x 5. Social & Family History - Family History Family Medical History: No Pertinent Family History - Tobacco Use Tobacco Use Status *Q: Current Every Day Tobacco User Years of Tobacco use: 40 Packs/Tins Daily: 0.2 Used Tobacco, but Quit: No Second Hand Smoke Exposure: No - Caffeine Use Caffeine Use: Reports: Coffee Caffeine Use Comment: 12 pack/day - Recreational Drug Use Recreational Drug Use: No - Living Situation & Occupation Living situation: Reports: with Family Occupation: Disabled ED ROS GENERAL - Review of Systems Review Of Systems: Comprehensive ROS is negative, except as noted in HPI. ED EXAM, SKIN/RASH Exam: See Below Exam Limited By: No Limitations General Appearance: Alert, WD/WN, Moderate Distress Eye Exam: Bilateral Eye: EOMI, Normal Inspection, PERRL Ears: Normal External Exam, Normal Canal, Hearing Grossly Normal, Normal TMs Nose: Normal Inspection, Normal Mucosa, No Blood Throat/Mouth: Normal Inspection, Normal Lips, Normal Teeth, Normal Gums, Normal Oropharynx, Normal Voice, No Airway Compromise Head: Atraumatic, Normocephalic Neck: Normal Inspection, Supple, Non-Tender, Full Range of Motion Respiratory/Chest: No Respiratory Distress, Lungs Clear, Normal Breath Sounds, No Accessory Muscle Use, Chest Non-Tender Cardiovascular: Normal Peripheral Pulses, Regular Rate, Rhythm, No Edema, No Gallop, No JVD, No Murmur, No Rub GI/Abdominal: Normal Bowel Sounds, Soft, Non-Tender, No Organomegaly, No Distention, No Abnormal Bruit, No Mass (Female) Exam: Deferred Rectal (Female) Exam: Deferred Back Exam: Normal Inspection Extremities: Arm Pain (right wrist) Psychiatric: Normal Affect, Normal Mood Skin: Wound/Incision (right wrist laceration) Location, Skin: Upper Extremity, Right Characteristics: Linear Lymphatic: No Adenopathy ED SKIN PROCEDURES - Laceration/Wound Repair Right Wrist Appearance: Subcutaneous, Linear Distal NVT: Neuro & Vascular Intact Anesthetic Type: Local Local Anesthesia - Lidocaine (Xylocaine): 1% Plain Local Anesthetic Volume: 4cc Skin Prep: Saline Exploration/Debridement/Repair: Wound Explored, In a Bloodless Field, No Foreign Material Found Closed with: Sutures Lac/Wound length In cm: 8 Suture Size: 4-0 # of Sutures: 15 Suture Type: Prolene, Interrupted, Simple Drain Placement: No Sterile Dressing Applied: Nurse Tetanus Status Addressed: Yes Complications: No Course - Vital Signs Last Recorded V/S: Last Vital Signs Temp 37.1 C 05/12/20 21:37 Pulse 79 05/12/20 21:37 Resp 18 05/12/20 21:37 BP 126/60 05/12/20 21:37 Pulse Ox 99 05/12/20 21:37 - Orders/Labs/Meds Meds: Medications Discontinued Medications Generic Name Dose Route Start Last Admin Trade Name Rianna PRN Reason Stop Dose Admin Bacitracin 1 dose 05/12/20 20:51 05/12/20 21:06 Bacitracin Oint 1 Gm TOP 05/12/20 20:52 1 dose ONETIME ONE Administration Lidocaine HCl 30 ml 05/12/20 20:51 05/12/20 21:04 Xylocaine-Mpf 1% INJECT 05/12/20 20:52 5 ml ONETIME ONE Administration Lidocaine HCl Confirm 05/12/20 20:52 Xylocaine-Mpf 1% Administered 05/12/20 20:53 Dose 30 ml .ROUTE .STK-MED ONE Departure - Departure Time of Disposition: 22:15 Disposition: Home, Self-Care 01 Condition: Fair Clinical Impression: Fall from ground level Laceration of right wrist Qualifiers: Encounter type: initial encounter Qualified Code(s): S61.511A - Laceration without foreign body of right wrist, initial encounter - Discharge Information *PRESCRIPTION DRUG MONITORING PROGRAM REVIEWED*: Not Applicable *COPY OF PRESCRIPTION DRUG MONITORING REPORT IN PATIENT SURENDRA: Not Applicable Instructions: Laceration Care, Adult, [id number] Forms: ED Department Discharge Care Plan Goals: The patient was advised of the examination and x-ray results during the visit. The patient's wound margins were well approximated during the visit. The patient was encouraged to keep the area clean and dry over the next 48 hours. The patient should have the sutures removed in about 14 days. If the patient has any additional symptoms or concerns, the patient should either return to the emergency department or visit her primary care facility. Sepsis Event Note (ED) - Focused Exam Vital Signs: Vital Signs Temp Pulse Resp BP Pulse Ox 05/12/20 21:37 37.1 C 79 18 126/60 99
[2020-05-12 21:38] VITALS: BP 126/60; PULSE 79
--- NOTE | 2020-05-12 22:05 | CR ---
PROCEDURE INFORMATION: Exam: XR Right Wrist Exam date and time: 05/12/2020 9:46 PM Age: 60 years old Clinical indication: Other: Fell on right wrist TECHNIQUE: Imaging protocol: XR Right wrist. Views: 3 or more views. COMPARISON: No relevant prior studies available. FINDINGS: Bones/joints: Osseous anatomic alignment is well preserved. No acutely displaced fracture or dislocation. Joint spaces are well preserved. Soft tissues: There is no significant soft tissue swelling. IMPRESSION: Negative for acute skeletal pathology.
--- NOTE | 2020-05-12 22:07 | CR ---
PROCEDURE INFORMATION: Exam: XR Right Shoulder Exam date and time: 05/12/2020 9:40 PM Age: 60 years old Clinical indication: Other: Right shoulder pain TECHNIQUE: Imaging protocol: XR Right shoulder. Views: 2 or more views. COMPARISON: No relevant prior studies available. FINDINGS: Bones/joints: There are mild degenerative changes of the right acromioclavicular joint. No acutely displaced fracture or dislocation. Normal anatomic alignment and bone density. Soft tissues: There is no significant soft tissue swelling. No acute findings in the visualized chest. IMPRESSION: Negative for acute skeletal pathology.
== END 2020-05-12 22:22 | disposition home or self-care (01) ==
LOC: DL.ED 20:49
DX: S61.511A Laceration without foreign body of right wrist, initial encounter (principal); I10 Essential (primary) hypertension; F41.9 Anxiety disorder, unspecified; F32.9 Major depressive disorder, single episode, unspecified; F17.210 Nicotine dependence, cigarettes, uncomplicated; Z79.899 Other long term (current) drug therapy; Z91.040 Latex allergy status; W26.0XXA Contact with knife, initial encounter
CPT/HCPCS: 12004; 73030; 73110; 99283; J2001; 99282

== ENCOUNTER 2021-02-18 06:49 | Emergency (ER) | payer MEDICARE, MEDICAID ==
[2021-02-18 07:16] VITALS: BP 144/98; PULSE 80
--- NOTE | 2021-02-18 07:25 | EDM.PDOC ---
ED HPI GENERAL MEDICAL PROBLEM - General Chief Complaint: Flank Pain Stated Complaint: AMBULANCE Time Seen by Provider: 02/18/21 07:18 Source of Information: Reports: Patient History Limitations: Reports: No Limitations - History of Present Illness INITIAL COMMENTS - FREE TEXT/NARRATIVE: 60 y/o F c/o L flank and back pain that started last night at midnight. No hx similar symptoms in the past. The pain is sharp, constant, and radiates to the L lower abd. She denies NV but reports some diarrhea for 3 weeks with no blood. She is a heavy smoker of cigarettes and reports she smoked meth yesterday. The pt called 911 because of the pain and was transported here. EMS gave the pt 50 mcg fentanyl with some improvement in her pain. She denies fever, chills, rivera, vision prb, cp, extremity pn, recent trauma. Onset: Sudden Duration: Hour(s): Location: Reports: Abdomen, Back Quality: Reports: Sharp Severity: Moderate Improves with: Reports: None Worsens with: Reports: None Left Flank Pain Score (Numeric/FACES): 7 - Related Data Allergies Allergy/AdvReac Type Severity Reaction Status Date / Time latex Allergy Other Verified 02/18/21 07:12 Home Meds: Home Meds SUMAtriptan succinate [Imitrex] 100 mg PO ASDIRECTED PRN 07/05/13 [History] rOPINIRole [Requip] 0.5 mg PO TID 10/27/16 [History] Escitalopram [Lexapro] 10 mg PO DAILY 12/31/17 [History] ALPRAZolam [Xanax] 0.5 mg PO Q6HR PRN 04/12/19 [History] Acetaminophen [Tylenol] 650 mg PO Q4H PRN tablet 04/12/19 [Rx] Gabapentin [Neurontin] 100 mg PO DAILY PRN 05/12/20 [History] Past Medical History HEENT History: Reports: Impaired Vision Cardiovascular History: Reports: Hypertension Respiratory History: Reports: None Gastrointestinal History: Reports: GERD, Hepatitis Genitourinary History: Reports: None 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: , 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) Other 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 History: tubal Ligation Musculoskeletal History: Reports: Osteoarthritis Neurological History: Reports: Headaches, Chronic, Migraines Psychiatric History: Reports: Addiction, Anxiety, Depression Endocrine/Metabolic History: Reports: None Hematologic History: Reports: Anemia, Blood Transfusion(s) Immunologic History: Reports: None Oncologic (Cancer) History: Reports: None Dermatologic History: Reports: None - Infectious Disease History Infectious Disease History: Reports: Chicken Pox, Hepatitis C, Measles, Mumps - Past Surgical History GI Surgical History: Reports: Colonoscopy Female Surgical History: Reports: Section Musculoskeletal Surgical History: Reports: Hip Replacement, 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) Other Musculoskeletal Surgeries/Procedures:: hip replacement x 5. Social & Family History - Family History Family Medical History: No Pertinent Family History - Caffeine Use Caffeine Use: Reports: Coffee Caffeine Use Comment: 12 pack/day - Living Situation & Occupation Living situation: Reports: with Family Occupation: Disabled ED ROS GENERAL - Review of Systems Review Of Systems: Comprehensive ROS is negative, except as noted in HPI. ED EXAM, GI/ABD - Physical Exam Exam: See Below General Appearance: Alert Throat/Mouth: Normal Inspection, Normal Lips, Normal Teeth, Normal Gums, Normal Oropharynx, Normal Voice, No Airway Compromise Head: Atraumatic, Normocephalic Neck: Normal Inspection, Supple, Non-Tender, Full Range of Motion Respiratory/Chest: No Respiratory Distress Cardiovascular: Normal Peripheral Pulses GI/Abdominal Exam: Soft, Tender (Tender Left lower quad) (Female) Exam: Deferred Rectal (Female) Exam: Deferred Back Exam: Other (Tender L flank) Extremities: Normal Inspection, Normal Range of Motion, Non-Tender, Normal Capillary Refill, No Pedal Edema Neurological: Alert, Oriented Skin Exam: Warm, Dry, Intact Course - Vital Signs Last Recorded V/S: Last Vital Signs Temp 96.8 F L 02/18/21 07:13 Pulse 80 02/18/21 07:13 Resp 20 02/18/21 07:13 BP 144/98 H 02/18/21 07:13 Pulse Ox 95 02/18/21 07:13 - Orders/Labs/Meds Orders: Active Orders 24 hr Category Date Time Status CULTURE URINE [RM] Stat Lab 02/18/21 08:13 Received Labs: Laboratory Tests 02/18/21 02/18/21 02/18/21 Range/Units 07:43 07:43 08:13 WBC 7.3 (5.0-10.0) 10^3/uL RBC 4.08 L (4.2-5.4) 10^6/uL Hgb 11.5 L (12.0-16.0) g/dL Hct 34.8 L (37.0-47.0) % MCV 85.3 D (80-100) fL MCH 28.2 (27.0-34.0) pg MCHC 33.0 (33.0-35.0) g/dL Plt Count 321 (150-450) 10^3/uL Neut % (Auto) 62.6 (42.2-75.2) % Lymph % (Auto) 20.7 (20.5-50.1) % [place] % (Auto) 9.7 H (2-8) % Eos % (Auto) 6.3 H (1.0-3.0) % Baso % (Auto) 0.7 (0.0-1.0) % Sodium 139 (136-145) mmol/L Potassium 3.8 (3.5-5.1) mmol/L Chloride 105 (98-107) mmol/L Carbon Dioxide 25 (21-32) mmol/L Anion Gap 12.8 (7-13) mEq/L BUN 17 (7-18) mg/dL Creatinine 0.89 (0.55-1.02) mg/dL Est Cr Clr Drug Dosing 52.50 mL/min Estimated GFR (MDRD) > 60 BUN/Creatinine Ratio 19.1 (No establ ref range) Glucose 100 H (70-99) mg/dL Calcium 8.4 L (8.5-10.1) mg/dL Magnesium 1.9 (1.8-2.4) mg/dL Total Bilirubin 0.4 (0.2-1.0) mg/dL AST 23 (15-37) U/L ALT 20 (14-59) U/L Alkaline Phosphatase 76 (46-116) U/L Total Protein 6.9 (6.4-8.2) g/dL Albumin 3.3 L (3.4-5.0) g/dL Globulin 3.6 Albumin/Globulin Ratio 0.92 Amylase 50 (25-115) U/L Lipase 67 L (73-393) U/L Urine Color Light yellow (YELLOW) Urine Appearance Clear (CLEAR) Urine pH 6.0 (5.0-9.0) Ur Specific [place] 1.015 (1.005-1.030) Urine Protein Negative (NEGATIVE) Urine Glucose (UA) Negative (NEGATIVE) Urine Ketones Negative (NEGATIVE) Urine Occult Blood Small H (NEGATIVE) Urine Nitrite Negative (NEGATIVE) Urine Bilirubin Negative (NEGATIVE) Urine Urobilinogen 0.2 (0.2-1.0) mg/dL Ur Leukocyte Esterase Trace H (NEGATIVE) Urine RBC 0-5 (0-5) /HPF Urine WBC 5-10 H (0-5/HPF) /HPF Ur Epithelial Cells Occasional (NOT SEEN) /HPF Amorphous Sediment Occasional (NOT SEEN) /HPF Urine Bacteria Occasional (0-FEW/HPF) /HPF Urine Mucus Rare (NOT SEEN) /LPF Urine Opiates Screen (NEGATIVE) Ur Oxycodone Screen (NEGATIVE) Urine Methadone Screen (NEGATIVE) Ur Barbiturates Screen (NEGATIVE) U Tricyclic Antidepress (NEGATIVE) Ur Phencyclidine Scrn (NEGATIVE) Ur Amphetamine Screen (NEGATIVE) U Methamphetamines Scrn (NEGATIVE) Urine MDMA Screen (NEGATIVE) U Benzodiazepines Scrn (NEGATIVE) Urine Cocaine Screen (NEGATIVE) U Marijuana (THC) Screen (NEGATIVE) 02/18/21 Range/Units 08:13 WBC (5.0-10.0) 10^3/uL RBC (4.2-5.4) 10^6/uL Hgb (12.0-16.0) g/dL Hct (37.0-47.0) % MCV (80-100) fL MCH (27.0-34.0) pg MCHC (33.0-35.0) g/dL Plt Count (150-450) 10^3/uL Neut % (Auto) (42.2-75.2) % Lymph % (Auto) (20.5-50.1) % [place] % (Auto) (2-8) % Eos % (Auto) (1.0-3.0) % Baso % (Auto) (0.0-1.0) % Sodium (136-145) mmol/L Potassium (3.5-5.1) mmol/L Chloride (98-107) mmol/L Carbon Dioxide (21-32) mmol/L Anion Gap (7-13) mEq/L BUN (7-18) mg/dL Creatinine (0.55-1.02) mg/dL Est Cr Clr Drug Dosing mL/min Estimated GFR (MDRD) BUN/Creatinine Ratio (No establ ref range) Glucose (70-99) mg/dL Calcium (8.5-10.1) mg/dL Magnesium (1.8-2.4) mg/dL Total Bilirubin (0.2-1.0) mg/dL AST (15-37) U/L ALT (14-59) U/L Alkaline Phosphatase (46-116) U/L Total Protein (6.4-8.2) g/dL Albumin (3.4-5.0) g/dL Globulin Albumin/Globulin Ratio Amylase (25-115) U/L Lipase (73-393) U/L Urine Color (YELLOW) Urine Appearance (CLEAR) Urine pH (5.0-9.0) Ur Specific [place] (1.005-1.030) Urine Protein (NEGATIVE) Urine Glucose (UA) (NEGATIVE) Urine Ketones (NEGATIVE) Urine Occult Blood (NEGATIVE) Urine Nitrite (NEGATIVE) Urine Bilirubin (NEGATIVE) Urine Urobilinogen (0.2-1.0) mg/dL Ur Leukocyte Esterase (NEGATIVE) Urine RBC (0-5) /HPF Urine WBC (0-5/HPF) /HPF Ur Epithelial Cells (NOT SEEN) /HPF Amorphous Sediment (NOT SEEN) /HPF Urine Bacteria (0-FEW/HPF) /HPF Urine Mucus (NOT SEEN) /LPF Urine Opiates Screen Negative (NEGATIVE) Ur Oxycodone Screen Negative (NEGATIVE) Urine Methadone Screen Negative (NEGATIVE) Ur Barbiturates Screen Negative (NEGATIVE) U Tricyclic Antidepress Negative (NEGATIVE) Ur Phencyclidine Scrn Negative (NEGATIVE) Ur Amphetamine Screen Negative (NEGATIVE) U Methamphetamines Scrn Positive H (NEGATIVE) Urine MDMA Screen Negative (NEGATIVE) U Benzodiazepines Scrn Positive H (NEGATIVE) Urine Cocaine Screen Negative (NEGATIVE) U Marijuana (THC) Screen Positive H (NEGATIVE) Meds: Medications Discontinued Medications Generic Name Dose Route Start Last Admin Trade Name Freq PRN Reason Stop Dose Admin Ketorolac Tromethamine 30 mg 02/18/21 10:26 Ketorolac 30 Mg/Ml Sdv IVPUSH 02/18/21 10:27 ONETIME ONE - Re-Assessments/Exams Free Text/Narrative Re-Assessment/Exam: 02/18/21 10:27 I informed pt of her kidney stone and went over the rest of her labs with her. I advised her to stop using methamphetamines, marijuana and other drugs. Departure - Departure Time of Disposition: 10:28 Disposition: Home, Self-Care 01 Condition: Fair Clinical Impression: Kidney stone - Discharge Information *PRESCRIPTION DRUG MONITORING PROGRAM REVIEWED*: Not Applicable *COPY OF PRESCRIPTION DRUG MONITORING REPORT IN PATIENT SURENDRA: Not Applicable Instructions: Kidney Stones, [id number] Forms: ED Department Discharge Additional Instructions: Drink plenty of water to help flush out your kidney stone. Use ibuprofen for pain. If any new symptoms or concerns develop contact your primary care facility or return to the ER. Sepsis Event Note (ED) - Focused Exam Vital Signs: Vital Signs Temp Pulse Resp BP Pulse Ox 02/18/21 07:13 96.8 F L 80 20 144/98 H 95 - My Orders Last 24 Hours: My Active Orders 02/18/21 08:13 CULTURE URINE [RM] Stat - Assessment/Plan Last 24 Hours: My Active Orders 02/18/21 08:13 CULTURE URINE [RM] Stat
[2021-02-18 08:18] LABS: ANION GAP 12.8 mEq/L (7-13); CHLORIDE,CL 105 mmol/L (98-107); SODIUM,NA 139 mmol/L (136-145)
[2021-02-18 08:34] LABS: AMPHETAMINES,URINE NEGATIVE (NEGATIVE); BARBITURATES,URINE NEGATIVE (NEGATIVE); BENZODIAZEPINE,URINE POSITIVE (NEGATIVE); MDMA (ECSTASY), URINE NEGATIVE (NEGATIVE); METHADONE,URINE NEGATIVE (NEGATIVE); METHAMPHETAMINES,URINE POSITIVE (NEGATIVE); OPIATES,URINE NEGATIVE (NEGATIVE); OXYCODONE,URINE NEGATIVE (NEGATIVE); PHENCYCLIDINE,URINE NEGATIVE (NEGATIVE); TCA,URINE NEGATIVE (NEGATIVE)
--- NOTE | 2021-02-18 09:59 | CT ---
EXAMINATION: Abdomen Pelvis wo Cont SEX: Female AGE: 60 years CLINICAL HISTORY: 60-year-old 200 pound female with left flank and abdominal PAIN. Scan technique: Volume acquisition of data emergency unenhanced CT scan of the abdomen and pelvis (kidneys/ureters/bladder) obtained with the patient lying supine on the Siemens multi slice scanner [place], [place]. All data archived in the PACS system for storage, reformatting axial/sagittal/coronal planes and study. Interpretation: 1." Hardening artifact" from Orthopedic prosthesis right hip and numerous screws in the ipsilateral right hemipelvis. 2. Arterial vascular calcifications normal caliber aortoiliac vessels. Numerous phlebolith-like radiopacities in the pelvis. Note: discrete tiny 2 mm calcification base of the urinary bladder, on the left evident on coronal slice #53/axial slice #113 that may lie in the distal ureter but no proximal, ipsilateral, left ureteral dilatation. Significance? Hematuria? 3. Normal reniform size, axis and configuration. No sign of nephrolithiasis or pyelocaliectasis. 4. Osteoporosis; exaggerated lumbar lordosis; hypertrophic spondylosis. No lumbar fracture or dislocation. 5. Gallbladder, unenhanced liver, stomach, spleen, pancreas and adrenal glands anatomically correct i.e. negative. 6. No abdominal or pelvic mass lesion. No mesenteric or retroperitoneal lymphadenopathy. No inflammatory "dirty" peritoneal fat, signs of mechanical bowel obstruction, ascites or free intraperitoneal air. Lung bases clear. CONCLUSION: Possible tiny distal left ureteral calculus (see above). Total right hip replacement. Vascular calcifications. No sign of bowel obstruction, abdominal malignancy or acute peritonitis.
[2021-02-18] MEDS ORDERED: Ketorolac 30 MG/ML SDV IVPUSH ONE (10:26)
== END 2021-02-18 11:16 | disposition home or self-care (01) ==
LOC: DL.ED 06:49
DX: N20.0 Calculus of kidney (principal); I10 Essential (primary) hypertension; F17.210 Nicotine dependence, cigarettes, uncomplicated; Z91.040 Latex allergy status; Z79.899 Other long term (current) drug therapy
CPT/HCPCS: 36415; 74176; 80053; 80305; 81001; 82150; 83690; 83735; 85025; 87086; 87088; 87186; 96374; 99283; 99285; J1885

== ENCOUNTER 2021-11-28 06:59 | Emergency (ER) | payer MEDICARE, MEDICAID ==
[2021-11-28] MEDS ORDERED: Sodium Chloride 0.9% 1,000 ML IV ONE (07:08)
[2021-11-28] MEDS ORDERED: Orphenadrine 60 MG/2 ML Inj IM ONE (07:09)
[2021-11-28 07:16] VITALS: PULSE 103
[2021-11-28 07:54] LABS: AMPHETAMINES,URINE NEGATIVE (NEGATIVE); BARBITURATES,URINE NEGATIVE (NEGATIVE); BENZODIAZEPINE,URINE POSITIVE (NEGATIVE); MDMA (ECSTASY), URINE NEGATIVE (NEGATIVE); METHADONE,URINE NEGATIVE (NEGATIVE); METHAMPHETAMINES,URINE POSITIVE (NEGATIVE); OPIATES,URINE NEGATIVE (NEGATIVE); OXYCODONE,URINE NEGATIVE (NEGATIVE); PHENCYCLIDINE,URINE NEGATIVE (NEGATIVE); TCA,URINE NEGATIVE (NEGATIVE)
[2021-11-28 07:57] LABS: ANION GAP 9.2 mEq/L (7-13); CHLORIDE,CL 102 mmol/L (98-107); ESTIMATED GFR 60 mL/min (>=60); SODIUM,NA 137 mmol/L (136-145)
[2021-11-28] MEDS ORDERED: Ketorolac 30 MG/ML SDV IM ONE (08:37)
[2021-11-28] MEDS ORDERED: Tamsulosin 0.4 MG Cap.ER PO ONE (09:13)
== END 2021-11-28 09:40 | disposition home or self-care (01) ==
LOC: DL.ED 06:59
DX: M54.9 Dorsalgia, unspecified (principal); R10.2 Pelvic and perineal pain; I10 Essential (primary) hypertension; K21.9 Gastro-esophageal reflux disease without esophagitis; F41.9 Anxiety disorder, unspecified; F32.A Depression, unspecified; Z79.899 Other long term (current) drug therapy; Z91.040 Latex allergy status
CPT/HCPCS: 36415; 74176; 80053; 80305-QW; 80307; 81001; 85025; 87086; 87088; 87186; 96360; 96372; 99284; 99284-25; A9270-GY; J1885; J2360; J7030

== ENCOUNTER 2022-03-21 01:45 | Emergency (ER) | payer MEDICARE, MEDICAID ==
[2022-04-13 12:45] LABS: ANION GAP 11.5 mEq/L (7-13); CHLORIDE,CL 103 mmol/L (98-107); ESTIMATED GFR 72 mL/min (>=60); SODIUM,NA 138 mmol/L (136-145)
[2022-04-13 12:49] LABS: AMPHETAMINES,URINE POSITIVE (NEGATIVE); BARBITURATES,URINE NEGATIVE (NEGATIVE); BENZODIAZEPINE,URINE POSITIVE (NEGATIVE); MDMA (ECSTASY), URINE NEGATIVE (NEGATIVE); METHADONE,URINE NEGATIVE (NEGATIVE); METHAMPHETAMINES,URINE POSITIVE (NEGATIVE); OPIATES,URINE POSITIVE (NEGATIVE); PHENCYCLIDINE,URINE NEGATIVE (NEGATIVE); TCA,URINE NEGATIVE (NEGATIVE)
[2022-04-13 12:50] LABS: OXYCODONE,URINE NEGATIVE (NEGATIVE)
== END 2022-03-21 04:30 | disposition home or self-care (01) ==
LOC: DL.ED 01:45
DX: R07.89 Other chest pain (principal); F15.10 Other stimulant abuse, uncomplicated; F17.200 Nicotine dependence, unspecified, uncomplicated
CPT/HCPCS: 36415; 71045; 80053; 80305-QW; 80307; 81001; 82150; 83690; 83735; 83880; 84484; 85025; 85379; 85610; 93005; 99285

== ENCOUNTER 2023-11-04 04:48 | Emergency (ER) | payer MEDICARE, MEDICAID ==
[2023-11-04 04:16] VITALS: BP 139/74; PULSE 78
[2023-11-04] MEDS: Sodium Chloride 0.9% 1,000 ML IV ONE (04:55)
[2023-11-04] MEDS: Albuterol/Ipratropium 3.0-0.5 MG/3 ML Neb Soln NEB ONE (04:57)
[2023-11-04 05:06] LABS: BASOPHILS PERCENT AUTO 0.3 % (0.0-1.0); EOSINOPHILS PERCENT AUTO 2.2 % (1.0-3.0); HEMATOCRIT 38.9 % (37.0-47.0); HEMOGLOBIN 12.7 g/dL (12.0-16.0); LYMPHOCYTES PERCENT AUTO 3.3 % (20.5-50.1); MEAN CORPUSCULAR HEMOGLOBIN 28.7 pg (27.0-34.0); MEAN CORPUSCULAR HGB CONC 32.6 g/dL (33.0-35.0); MEAN CORPUSCULAR VOLUME 87.8 fL (80-100); MONOCYTES PERCENT AUTO 15.1 % (2-8); NEUTROPHILS PERCENT AUTO 79.1 % (42.2-75.2); PLATELET COUNT,PLT 291 10^3/uL (150-450); RED BLOOD CELL COUNT 4.43 10^6/uL (4.2-5.4); WHITE BLOOD CELL COUNT,WBC 6.3 10^3/uL (5.0-10.0)
[2023-11-04 05:22] LABS: LACTIC ACID 0.6 mmol/L (0.4-2.0)
[2023-11-04 05:29] LABS: ALANINE AMINOTRANSFERASE,ALT 18 U/L (14-59); ALBUMIN 3.8 g/dL (3.4-5.0); ALKALINE PHOSPHATASE 87 U/L (46-116); ANION GAP 9.4 mEq/L (7-13); ASPARTATE AMNIOTRANSFERASE,AST 14 U/L (15-37); BILIRUBIN TOTAL 0.3 mg/dL (0.2-1.0); BLOOD UREA NITROGEN,BUN 16 mg/dL (7-18); BUN/CREATININE RATIO 13.3 (No establ ref range); CARBON DIOXIDE,CO2 31 mmol/L (21-32); CHLORIDE,CL 103 mmol/L (98-107); EST CRCL DRUG DOSING (CG) 37.46 mL/min; ESTIMATED GFR 51 mL/min (>=60); ETHANOL BLOOD MEDICAL < 3 mg/dL (0); GLUCOSE RANDOM 117 mg/dL (70-99); LIPASE 49 U/L (16-77); MAGNESIUM 2.1 mg/dL (1.8-2.4); POTASSIUM,K 4.4 mmol/L (3.5-5.1); PROTEIN TOTAL,TP 7.7 g/dL (6.4-8.2); SODIUM,NA 139 mmol/L (136-145)
[2023-11-04 05:33] LABS: APPEARANCE,URINE CLEAR (CLEAR); BILIRUBIN,URINE NEGATIVE (NEGATIVE); COLOR,URINE YELLOW (YELLOW); GLUCOSE,URINE NEGATIVE (NEGATIVE); KETONES,URINE NEGATIVE (NEGATIVE); LEUKOCYTE ESTERASE,URINE NEGATIVE (NEGATIVE); NITRITE,URINE NEGATIVE (NEGATIVE); OCCULT BLOOD,URINE SMALL (NEGATIVE); PROTEIN,URINE NEGATIVE (NEGATIVE); UROBILINOGEN,URINE 0.2 mg/dL (0.2-1.0)
[2023-11-04 05:37] LABS: AMPHETAMINES,URINE NEGATIVE (NEGATIVE); BARBITURATES,URINE NEGATIVE (NEGATIVE); BENZODIAZEPINE,URINE POSITIVE (NEGATIVE); MDMA (ECSTASY), URINE NEGATIVE (NEGATIVE); METHADONE,URINE NEGATIVE (NEGATIVE); METHAMPHETAMINES,URINE NEGATIVE (NEGATIVE); OPIATES,URINE NEGATIVE (NEGATIVE); OXYCODONE,URINE NEGATIVE (NEGATIVE); PHENCYCLIDINE,URINE NEGATIVE (NEGATIVE); TCA,URINE NEGATIVE (NEGATIVE)
[2023-11-04 05:39] LABS: WBC,URINE 0-5 /HPF (0-5/HPF)
[2023-11-04 05:40] LABS: AMORPHOUS SEDIMENT,URINE FEW /HPF (NOT SEEN); BACTERIA,URINE RARE /HPF (0-FEW/HPF); EPITHELIAL CELLS,URINE FEW /HPF (NOT SEEN); MUCUS,URINE RARE /LPF (NOT SEEN)
[2023-11-04] MEDS: Ketorolac 30 MG/ML SDV IVPUSH ONE (06:43)
== END 2023-11-04 06:52 | disposition home or self-care (01) ==
LOC: DL.ED 04:48
DX: K21.9 Gastro-esophageal reflux disease without esophagitis (principal); J06.9 Acute upper respiratory infection, unspecified; I10 Essential (primary) hypertension; Z91.040 Latex allergy status; Z79.899 Other long term (current) drug therapy
CPT/HCPCS: 36415; 71045; 80053; 80305; 80307; 81001; 83605; 83690; 83735; 84484; 85025; 93005; 96361; 96374; 99285; J1885; J7030; J7620-GY

== ENCOUNTER 2023-11-22 05:23 | Day surgery (SDC) | payer MEDICARE, MEDICAID ==
[2023-11-22] MEDS ORDERED: fentaNYL 100 MCG/2 ML SDV IV ONE (05:24)
[2023-11-22] MEDS ORDERED: Midazolam 1 MG/ML 2 ML SDV IV ONE (05:24)
[2023-11-22] MEDS: Dextrose 5%-0.45% NaCl 1,000 ML IV SCH (06:04)
[2023-11-22] MEDS ORDERED: fentaNYL 100 MCG/2 ML SDV ONE (06:10)
[2023-11-22] MEDS ORDERED: Midazolam 1 MG/ML 2 ML SDV ONE (06:10)
[2023-11-22] MEDS: fentaNYL 100 MCG/2 ML SDV IV ONE ×2 (06:22→06:23)
[2023-11-22] MEDS: Midazolam 1 MG/ML 2 ML SDV IV ONE ×2 (06:23→06:25)
[2023-11-22 09:08] VITALS: BP 116/83; PULSE 77
== END 2023-11-22 08:15 | disposition home or self-care (01) ==
LOC: DL.ENDO 05:23
PROVIDERS: ATTEND Internal Medicine Gastroenterology
DX: K21.9 Gastro-esophageal reflux disease without esophagitis (principal); K31.89 Other diseases of stomach and duodenum; F41.8 Other specified anxiety disorders; N18.9 Chronic kidney disease, unspecified
CPT/HCPCS: 87077; 88305; J2250; J3010; J7042

== ENCOUNTER 2023-12-17 06:54 | Day surgery (SDC) | payer MEDICARE, MEDICAID ==
[~2023-12-17 06:54] MED LIST: Midazolam 1 MG/ML 2 ML SDV ONE; fentaNYL 100 MCG/2 ML SDV ONE
[2023-12-17] MEDS ORDERED: Midazolam 1 MG/ML 2 ML SDV IV ONE (06:55)
[2023-12-17] MEDS ORDERED: fentaNYL 100 MCG/2 ML SDV IV ONE (06:55)
[2023-12-17] MEDS: Dextrose 5%-0.45% NaCl 1,000 ML IV SCH (07:28)
[2023-12-17] MEDS: fentaNYL 100 MCG/2 ML SDV IV ONE ×3 (08:23→08:31)
[2023-12-17] MEDS: Midazolam 1 MG/ML 2 ML SDV IV ONE ×9 (08:24→08:36)
[2023-12-17 10:38] VITALS: BP 105/69; PULSE 80
== END 2023-12-17 10:34 | disposition home or self-care (01) ==
LOC: DL.ENDO 06:54
PROVIDERS: ATTEND Internal Medicine Gastroenterology
DX: Z12.11 Encounter for screening for malignant neoplasm of colon (principal)
CPT/HCPCS: G0121; J2250; J3010; J7799

== ENCOUNTER 2024-01-16 16:40 | Emergency (ER) | payer MEDICARE, MEDICAID ==
[2024-01-16 17:17] VITALS: BP 156/98; PULSE 90
[2024-01-16] MEDS: Rabies Vaccine (Avian) 2.5 Unit Inj Kit IM ONE (17:25)
== END 2024-01-16 17:31 | disposition home or self-care (01) ==
LOC: DL.ED 16:40
DX: S51.851A Open bite of right forearm, initial encounter (principal); I10 Essential (primary) hypertension; K21.9 Gastro-esophageal reflux disease without esophagitis; Z86.16 Personal history of COVID-19; F17.200 Nicotine dependence, unspecified, uncomplicated; Z79.899 Other long term (current) drug therapy; Z91.048 Other nonmedicinal substance allergy status; Z23 Encounter for immunization; Z88.4 Allergy status to anesthetic agent; W55.01XA Bitten by cat, initial encounter
CPT/HCPCS: 90471; 90675; 99283-25

== ENCOUNTER 2024-01-20 23:11 | Emergency (ER) | payer MEDICARE, MEDICAID ==
[2024-01-20 23:10] VITALS: BP 120/61; PULSE 75
[2024-01-20 23:36] LABS: BASOPHILS PERCENT AUTO 0.6 % (0.0-1.0); EOSINOPHILS PERCENT AUTO 4.7 % (1.0-3.0); LYMPHOCYTES PERCENT AUTO 34.1 % (20.5-50.1); MEAN CORPUSCULAR HEMOGLOBIN 28.8 pg (27.0-34.0); MEAN CORPUSCULAR HGB CONC 32.4 g/dL (33.0-35.0); MEAN CORPUSCULAR VOLUME 88.9 fL (80-100); MONOCYTES PERCENT AUTO 14.6 % (2-8); PLATELET COUNT,PLT 309 10^3/uL (150-450); RED BLOOD CELL COUNT 4.16 10^6/uL (4.2-5.4); WHITE BLOOD CELL COUNT,WBC 5.3 10^3/uL (5.0-10.0)
[2024-01-20] MEDS: Ondansetron 4 MG/2 ML SDV IVPUSH ONE (23:48)
[2024-01-20] MEDS: Morphine 2 MG/ML SYRINGE IVPUSH ONE (23:50)
[2024-01-20 23:55] LABS: ALANINE AMINOTRANSFERASE,ALT 24 U/L (14-59); ALBUMIN 3.6 g/dL (3.4-5.0); ALKALINE PHOSPHATASE 65 U/L (46-116); ANION GAP 13.9 mEq/L (7-13); ASPARTATE AMNIOTRANSFERASE,AST 18 U/L (15-37); BILIRUBIN TOTAL 0.3 mg/dL (0.2-1.0); BLOOD UREA NITROGEN,BUN 27 mg/dL (7-18); BUN/CREATININE RATIO 24.3 (No establ ref range); CARBON DIOXIDE,CO2 25 mmol/L (21-32); CHLORIDE,CL 104 mmol/L (98-107); CREATININE 1.11 mg/dL (0.55-1.02); ESTIMATED GFR 56 mL/min (>=60); GLUCOSE RANDOM 121 mg/dL (70-99); POTASSIUM,K 3.9 mmol/L (3.5-5.1); PROTEIN TOTAL,TP 7.2 g/dL (6.4-8.2); SODIUM,NA 139 mmol/L (136-145)
[2024-01-21] MEDS: Sodium Chloride 0.9% 1,000 ML IV ONE (00:05)
[2024-01-21] MEDS: Iopamidol 612 MG/ML 100 ML Bottle IVPUSH ONE (01:37)
== END 2024-01-21 02:36 | disposition home or self-care (01) ==
LOC: DL.ED 23:11
DX: M25.561 Pain in right knee (principal); N17.9 Acute kidney failure, unspecified; E86.9 Volume depletion, unspecified; I10 Essential (primary) hypertension; Z88.6 Allergy status to analgesic agent; Z91.048 Other nonmedicinal substance allergy status; Z79.899 Other long term (current) drug therapy; Z86.16 Personal history of COVID-19; V18.0XXA Pedal cycle driver injured in noncollision transport accident in nontraffic accident, initial encounter
CPT/HCPCS: 36415; 70450; 71260; 72125; 73552; 73560; 74177; 80053; 82947; 85025; 93005; 96361; 96374; 96375; 99285; J2270; J2405; J7030; Q9967